=== PATIENT | male | born 1995 | race Caucasian/White ===

== ENCOUNTER 2021-11-13 08:21 | Outpatient (REF) | payer MEDICARE, MEDICAID, SELFPAY ==
[2021-11-13 08:49] LABS: MANUAL DIFF FLAG NO
[2021-11-13 08:53] LABS: Basophils Percent Auto 0.4 % (0-2); Eosinophils Absolute Auto 0.1 X10*3/uL (0.0-0.4); Eosinophils Percent Auto 1.5 % (0-4); Hematocrit 45.9 % (42.0-52.0); Hemoglobin 14.4 g/dl (14.0-18.0); Imm Gran Abs Auto 0.01 X10*3/uL (0.00-0.03); Imm Gran Pct Auto 0.1 % (0.0-0.4); Lymphocytes Absolute Auto 2.7 X10*3/uL (1.2-4.9); Lymphocytes Percent Auto 33.3 % (20-40); Mean Corpuscular HGB Conc 31.4 g/dl (31.0-36.0); Mean Corpuscular Hemoglobin 27.5 pg (27.0-33.0); Mean Corpuscular Volume 87.8 fL (80.0-98.0); Mean Platelet Volume 9.6 fL (9.4-12.4); Monocytes Absolute Auto 0.6 X10*3/uL (0.1-1.2); Monocytes Percent Auto 6.8 % (2-11); Neutrophils Absolute Auto 4.7 x10*3/uL (2.0-8.3); Neutrophils Percent Auto 57.9 % (45-73); Platelet Count 354 X10*3/uL (160-400); Red Blood Count 5.23 X10*6/uL (4.60-5.80); Red Cell Distribution Width 12.6 % (11.0-16.0); White Blood Count 8.1 X10*3/uL (4.8-10.8)
[2021-11-13 09:22] LABS: Alanine Aminotransferase 16 U/L (0-40); Albumin Level 4.2 g/dL (3.5-5.0); Alkaline Phosphatase 66 U/L (39-117); Anion Gap 12 (12-20); Aspartate Amino Transferase 14 U/L (5-37); Blood Urea Nitrogen 11 mg/dL (9-16); Calcium 9.8 mg/dL (8.4-10.2); Carbon Dioxide 28 mmol/L (22-29); Chloride 105 mmol/L (96-108); Cholesterol 154 mg/dL; Estimated Glomerular Filt Rate > 60; Glucose Fasting 95 mg/dL (60-99); HDL Cholesterol 54 mg/dL; LDL Cholesterol Calculated 90 mg/dl; Potassium 3.9 mmol/L (3.3-5.1); Sodium 141 mmol/L (135-145); Total Protein 7.3 g/dL (6.5-8.0); Triglycerides 50 mg/dL
[2021-11-13 09:43] LABS: TSH reflex Free T4 2.59 uIU/mL (0.32-4.0)
== END 2021-11-13 08:22 | disposition home or self-care (01) ==
LOC: HO.LAB 08:21
PROVIDERS: Visit Provider Nurse Practitioner Family
DX: Z13.220 Encounter for screening for lipoid disorders (principal); Z13.29 Encounter for screening for other suspected endocrine disorder; R19.5 Other fecal abnormalities
CPT/HCPCS: 36415; 80053; 80061; 84443; 85025

== ENCOUNTER 2022-01-05 17:12 | Outpatient (REF) | payer MEDICARE, MEDICAID, SELFPAY | END 2022-01-05 17:13 | disposition home or self-care (01) | LOC: HO.LAB 17:12 | PROVIDERS: PCP Internal Medicine; Visit Provider Internal Medicine | DX: Z13.89 Encounter for screening for other disorder (principal) ==

== ENCOUNTER 2022-01-06 16:51 | Outpatient (REF) | payer MEDICARE, MEDICAID, SELFPAY ==
[2022-01-06 20:18] LABS: Leukocytes Stool Qualitative FEW: < 2/OIF (NEGATIVE)
== END 2022-01-06 16:52 | disposition home or self-care (01) ==
LOC: HO.LNP 16:51
PROVIDERS: Visit Provider Internal Medicine
DX: R19.7 Diarrhea, unspecified (principal)
CPT/HCPCS: 87045; 87046; 87329; 87338; 89055

== ENCOUNTER → 2022-01-07 15:42 | Outpatient (BNVA) | payer MEDICARE, MEDICAID, SELFPAY | PROVIDERS: PCP Internal Medicine; Referring Provider Internal Medicine; Visit Provider Nurse Practitioner | DX: K52.9 Noninfective gastroenteritis and colitis, unspecified (principal); R14.1 Gas pain; R14.0 Abdominal distension (gaseous) | CPT/HCPCS: 99202 ==

== ENCOUNTER 2022-01-08 15:19 | Outpatient (REF) | payer MEDICARE, MEDICAID, SELFPAY ==
[2022-01-08 16:15] LABS: C Reactive Protein 0.24 mg/dL (< or = 0.50)
[2022-01-12 13:31] LABS: Transglutaminase Ab IgG <1.0 U/mL; Transglutaminase IgA <1.0 U/mL
== END 2022-01-08 15:20 | disposition home or self-care (01) ==
LOC: HO.LAB 15:19
PROVIDERS: PCP Internal Medicine; Visit Provider Nurse Practitioner
DX: K52.9 Noninfective gastroenteritis and colitis, unspecified (principal); R14.0 Abdominal distension (gaseous); R14.1 Gas pain
CPT/HCPCS: 36415; 86003; 86140; 86364

== ENCOUNTER → 2022-01-28 16:19 | Outpatient (BNVA) | payer MEDICARE, MEDICAID, SELFPAY | PROVIDERS: PCP Internal Medicine; Referring Provider Internal Medicine; Visit Provider Nurse Practitioner | DX: K52.9 Noninfective gastroenteritis and colitis, unspecified (principal); E73.9 Lactose intolerance, unspecified; R14.1 Gas pain | CPT/HCPCS: 99212 ==

== ENCOUNTER → 2022-03-25 15:37 | Outpatient (BNVA) | payer MEDICARE, MEDICAID, SELFPAY | PROVIDERS: PCP Internal Medicine; Referring Provider Internal Medicine; Visit Provider Nurse Practitioner | DX: K52.9 Noninfective gastroenteritis and colitis, unspecified (principal); K63.89 Other specified diseases of intestine; E73.9 Lactose intolerance, unspecified | CPT/HCPCS: 99212 ==

== ENCOUNTER → 2022-04-07 13:40 | Outpatient (BNVA) | payer MEDICARE, MEDICAID, SELFPAY | PROVIDERS: PCP Internal Medicine; Visit Provider Urology | DX: N41.1 Chronic prostatitis (principal); G89.4 Chronic pain syndrome | CPT/HCPCS: 51798; 99202 ==

== ENCOUNTER → 2022-05-20 10:52 | Outpatient (BNVA) | payer MEDICARE, MEDICAID, SELFPAY | PROVIDERS: PCP Internal Medicine; Visit Provider Urology | DX: N41.1 Chronic prostatitis (principal); G89.4 Chronic pain syndrome | CPT/HCPCS: 99212 ==

== ENCOUNTER → 2022-07-27 15:18 | Outpatient (BNVA) | payer MEDICARE, MEDICAID, SELFPAY | PROVIDERS: PCP Internal Medicine; Visit Provider Nurse Practitioner | DX: K52.9 Noninfective gastroenteritis and colitis, unspecified (principal); K63.89 Other specified diseases of intestine; R14.1 Gas pain; G89.4 Chronic pain syndrome; N41.1 Chronic prostatitis; Z79.899 Other long term (current) drug therapy | CPT/HCPCS: 99212 ==

== ENCOUNTER 2022-09-17 15:23 | Outpatient (REF) | payer MEDICARE, MEDICAID, SELFPAY ==
[2022-09-17 16:41] LABS: Appearance Urine Clear; Color Urine Yellow; Glucose Urine UA Negative (Negative); Leukocyte Esterase Urine Negative (Negative); Nitrite Urine Negative (Negative); Urine Blood Negative (Negative); Urine Ketones Trace mg/dL (Negative); Urine Protein Negative (Neg-Trace)
== END 2022-09-17 15:24 | disposition home or self-care (01) ==
LOC: HO.LAB 15:23
PROVIDERS: PCP Internal Medicine; Visit Provider Internal Medicine
DX: R30.0 Dysuria (principal)
CPT/HCPCS: 81003

== ENCOUNTER → 2022-09-29 15:20 | Outpatient (BNVA) | payer MEDICARE, MEDICAID, SELFPAY | PROVIDERS: PCP Internal Medicine; Visit Provider Nurse Practitioner | DX: K52.9 Noninfective gastroenteritis and colitis, unspecified (principal); K63.89 Other specified diseases of intestine; R14.1 Gas pain; R10.10 Upper abdominal pain, unspecified; E73.9 Lactose intolerance, unspecified | CPT/HCPCS: 99212 ==

== ENCOUNTER 2022-09-30 14:43 | Outpatient (REF) | payer MEDICARE, MEDICAID, SELFPAY ==
[2022-10-12 20:52] LABS: Pancreatic Elastase-1 >500 mcg/g
== END 2022-09-30 14:44 | disposition home or self-care (01) ==
LOC: HO.LNP 14:43
PROVIDERS: Visit Provider Nurse Practitioner
DX: R14.1 Gas pain (principal)
CPT/HCPCS: 82656

== ENCOUNTER 2022-10-21 15:00 | Outpatient (RCR) | payer MEDICARE, OTHER, MEDICAID, SELFPAY ==
--- NOTE | 2022-07-30 16:10 | MHC.PT.EP ---
[facility] [place] [facility] [place] [facility] [address] [place] [address] [phone] F: [phone] F: [phone] F: [phone] F: [phone] Physical Therapy Plan of Care Date of Evaluation: Date of Surgery: NA Diagnosis: Chronic prostatitis Chronic pain syndrome Assessment: Ankit is a 27 year old male who is referred to PT for chronic prostatitis . He reports of having symptoms of pain for the last 4 years. Denies any trauma or injury. His pain is localized to area between penis and rectum (perineum) and is present more so after ejaculation, and during flare ups with sitting, coughing and sneezing. He also reports of having symptoms of urgency, frequency, slow stream and straining to empty bladder and bowel. Internal pelvic exam not performed due to lack of time. Symptoms suggestive of possible high resting pelvic tone. He would benefit from skilled PT to address the aforementioned impairments and improve tolerance to functional activities. Frequency and Duration: The patient will be seen 1/week for 8 weeks Short Term Goals: 1. Internal pelvic exam will be done in 1 week. 2. Pt will note 50% decrease in frequency and intensity of symptoms in 3 weeks. Group Home Manager Goals: 1. Pt will note a good stream of urine and a frequency for 6-8 times/ day without medication in 5 weeks. 2. Pt will note a pain of no more than 2/10 after ejaculation in 7 weeks. 3. Pt will be independent with [facility] for symptom management and maintenance following d/c in 8 weeks. Treatment Plan: Modalities to reduce pain, spasms and effusion. Manual therapy to restore motion and function. Therapeutic exercise to improve strength and flexibility. Neuromuscular re-education for posture and balance. Therapeutic activities to return to functional activities of daily living. Electronically signed by: Please sign and return to therapist. Thank you for your referral.
--- NOTE | 2022-10-21 15:46 | MHC.PT.DC ---
[facility] [place] [facility] [place] [facility] [place] Office [address] [place]onica [place] [address] [phone] F: [phone] F: [phone] F: [phone] F: [phone] Physical Therapy Discharge Report Diagnosis: Chronic prostatitis Chronic pain syndrome Date of Surgery: NA Date of Evaluation: 07/30/22 Date of Discharge: 10/21/22 Treatments to Date: 9 Cancellations to Date: 0 No Shows to Date: 0 Discharge Status: Improved Function Independent with HEP Discharge Summary: Ankit has completed 9 PT visits and has made significant improvements. He demonstrates skills for managing pelvic pain flare ups. He is independent with HEP. At this time he would benefit from trialing dietary modification (anti-inflammatory diet) to decreased abdominal pain and discomfort. Ankit is therefore being d/c from PT today. He was in agreement with the plan. Electronically signed by: Rajni Ray PT DPT Please sign and return to therapist. Thank you for your referral.
== END 2022-10-21 15:49 | disposition home or self-care (01) ==
LOC: HO.PT 15:00
PROVIDERS: PCP Internal Medicine; Visit Provider Urology
DX: N41.1 Chronic prostatitis (principal); G89.4 Chronic pain syndrome
CPT/HCPCS: 97112; 97140; 97161

== ENCOUNTER 2022-11-05 14:33 | Outpatient (REF) | payer OTHER, MEDICAID, SELFPAY ==
--- NOTE | ~2022-11-05 | US_ITS ---
EXAMINATION: US ABDOMEN COMPLETE CLINICAL INFORMATION: Pain of right upper abdomen. COMPARISON: X-ray abdomen 06/18/2019. TECHNIQUE: Real-time imaging of the abdominal viscera. FINDINGS: PANCREAS: Normal. ABDOMINAL AORTA: The proximal, mid, and distal segments are normal in caliber. INFERIOR VENA CAVA: Visualized portions are normal. LIVER: Normal. The liver is normal in size. The liver contour is normal. Parenchymal echogenicity is normal. No focal hepatic lesion. There is no intrahepatic biliary duct dilatation seen. GALLBLADDER: The gallbladder is physiologically distended. Multiple mobile gallstones are present. No evidence of gallbladder wall thickening or pericholecystic fluid. There are common tail artifacts suspicious for adenomyomatosis. COMMON BILE DUCT: Normal in caliber measuring 0.3 cm in diameter. RIGHT KIDNEY: Normal. No hydronephrosis. No renal calculi or focal parenchymal lesions. The kidney measures 9.1 cm in maximum dimension. LEFT KIDNEY: Normal. No hydronephrosis. No renal calculi or focal parenchymal lesions. The kidney measures 10.5 cm in maximum dimension. SPLEEN: Normal. The spleen measures 12.2 cm in maximum dimension. FREE FLUID: None. US/US abdomen complete IMPRESSION: Cholelithiasis without wall thickening. Suspect adenomyomatosis. The rest of the abdominal ultrasound is unremarkable.
== END 2022-11-05 14:34 | disposition home or self-care (01) ==
LOC: HO.US 14:33
PROVIDERS: Visit Provider Nurse Practitioner
DX: R10.10 Upper abdominal pain, unspecified (principal); R14.1 Gas pain
CPT/HCPCS: 76700

== ENCOUNTER → 2022-11-11 15:25 | Outpatient (BNVA) | payer OTHER, MEDICAID, SELFPAY | PROVIDERS: PCP Internal Medicine; Visit Provider Nurse Practitioner | DX: K80.20 Calculus of gallbladder without cholecystitis without obstruction (principal) ==

== ENCOUNTER → 2022-11-19 14:55 | Outpatient (BNVA) | payer OTHER, MEDICAID, SELFPAY | PROVIDERS: PCP Internal Medicine; Visit Provider Urology | DX: N46.9 Male infertility, unspecified (principal) ==

== ENCOUNTER 2022-11-26 15:14 | Outpatient (REF) | payer OTHER, MEDICAID, SELFPAY ==
[2022-11-26 15:26] LABS: MANUAL DIFF FLAG NO
[2022-11-26 15:34] LABS: Basophils Percent Auto 0.3 % (0-2); Eosinophils Absolute Auto 0.1 X10*3/uL (0.0-0.4); Eosinophils Percent Auto 0.8 % (0-4); Hematocrit 45.1 % (42.0-52.0); Hemoglobin 14.1 g/dl (14.0-18.0); Imm Gran Abs Auto 0.02 X10*3/uL (0.00-0.03); Imm Gran Pct Auto 0.2 % (0.0-0.4); Lymphocytes Absolute Auto 3.1 X10*3/uL (1.2-4.9); Lymphocytes Percent Auto 36.2 % (20-40); Mean Corpuscular HGB Conc 31.3 g/dl (31.0-36.0); Mean Corpuscular Hemoglobin 27.3 pg (27.0-33.0); Mean Corpuscular Volume 87.4 fL (80.0-98.0); Mean Platelet Volume 9.3 fL (9.4-12.4); Monocytes Absolute Auto 0.6 X10*3/uL (0.1-1.2); Monocytes Percent Auto 6.5 % (2-11); Neutrophils Absolute Auto 4.8 x10*3/uL (2.0-8.3); Platelet Count 337 X10*3/uL (160-400); Red Blood Count 5.16 X10*6/uL (4.60-5.80); Red Cell Distribution Width 12.6 % (11.0-16.0); White Blood Count 8.6 X10*3/uL (4.8-10.8)
[2022-11-26 16:20] LABS: Alanine Aminotransferase 13 U/L (0-40); Albumin Level 4.4 g/dL (3.5-5.0); Alkaline Phosphatase 64 U/L (39-117); Anion Gap 14 (12-20); Aspartate Amino Transferase 16 U/L (5-37); Bilirubin Total 1.4 mg/dL (0.0-1.0); Blood Urea Nitrogen 11 mg/dL (9-16); Calcium 9.8 mg/dL (8.4-10.2); Carbon Dioxide 27 mmol/L (22-29); Chloride 105 mmol/L (96-108); Estimated Glomerular Filt Rate > 60; Glucose Fasting 84 mg/dL (60-99); Potassium 4.4 mmol/L (3.3-5.1); Sodium 142 mmol/L (135-145); Total Protein 7.3 g/dL (6.5-8.0)
[2022-11-26 16:37] LABS: TSH reflex Free T4 1.98 uIU/mL (0.32-4.0)
== END 2022-11-26 15:15 | disposition home or self-care (01) ==
LOC: HO.LAB 15:14
PROVIDERS: PCP Internal Medicine; Visit Provider Nurse Practitioner Family
DX: Z00.00 Encounter for general adult medical examination without abnormal findings (principal)
CPT/HCPCS: 36415; 80053; 82306; 84443; 85025

== ENCOUNTER → 2022-12-01 10:39 | Outpatient (REF) | payer OTHER, MEDICAID, SELFPAY ==
--- NOTE | ~2022-12-01 | NM_ITS ---
EXAMINATION: BILIARY TRACT IMAGING STUDY WITH CCK CLINICAL INFORMATION: Calculus of gallbladder without cholecystitis.. COMPARISON: No previous biliary scan is available for comparison. Abdominal ultrasound dated 11/05/2022 is available for comparison.. TECHNIQUE: Serial gamma scintillation camera images were obtained over the abdomen for a total observation period of 90 minutes following the intravenous administration of 5 mCi Tc-99m Mebrofenin. FINDINGS: There is good concentration of activity in the liver by 5 minutes post injection. Biliary activity is visualized by 6 minutes. The gallbladder is well visualized by 15 minutes. Small bowel is well visualized by 25 minutes. At 60 minutes post radiopharmaceutical injection, a 30-minute infusion of 2.0 micrograms Sincalide was then begun and an additional 40 minutes of images were obtained. Some gallbladder emptying is visualized during the sincalide infusion but this is less than normal. At the end of the study there is almost complete clearance of activity from the liver and visualization of diffuse small bowel activity but persistent activity in the gallbladder. The calculated gallbladder ejection fraction is 29% (normal gallbladder ejection fraction is greater than 35%). NM/NM hepatobiliary w pharm IMPRESSION: 1. Visualization of the gallbladder is evidence of a patent cystic duct and strong evidence against the diagnosis of acute cholecystitis. The common bile duct is patent. Liver function appears normal. 2. Poor gallbladder emptying and a low gallbladder ejection fraction are evidence of impaired gallbladder contractility and most likely due to chronic cholecystitis.
== END ==
LOC: HO.NUCMED 10:39
PROVIDERS: Visit Provider Nurse Practitioner
DX: K80.20 Calculus of gallbladder without cholecystitis without obstruction (principal); R10.10 Upper abdominal pain, unspecified
CPT/HCPCS: 78227; A9537

== ENCOUNTER → 2023-02-18 15:17 | Outpatient (BNVA) | payer OTHER, MEDICAID, SELFPAY | PROVIDERS: PCP Internal Medicine; Visit Provider Nurse Practitioner | DX: Z13.89 Encounter for screening for other disorder (principal) ==

== ENCOUNTER → 2023-04-08 15:17 | Outpatient (BNVA) | payer OTHER, MEDICAID, SELFPAY | PROVIDERS: PCP Internal Medicine; Visit Provider Nurse Practitioner ==

== ENCOUNTER 2023-08-05 14:25 | Outpatient (AMB) | payer OTHER, SELFPAY ==
--- NOTE | 2023-08-05 14:59 | A.OFFVIS_ITS ---
Intake Intake Visit Reasons: Bladder outlet obstruction- follow up Intake Note: Patient presents for follow up Bladder outlet obstruction Urology Medications: Celebrex Blood Thinner: none Director Of Primary Required: No Accompanied by: Unknown Allergies No Known Allergies Allergy (Verified 08/05/23 15:15) Medication List - Last Reconciled 08/05/23 by Matt Stahl MD [bromelain 80 mg PO DAILY] celecoxib (Celebrex) 200 mg PO DAILY cholecalciferol (vitamin D3) 25 mcg PO DAILY qqquqk-yslhdbpg-bonqcef 20,880-78,300- 78,300 unit (Viokace) 2 caps PO TID pentoxifylline ER 400 mg PO BID 90 days vitamin E (dl, acetate) 450 mg PO DAILY 90 days HPI HPI Comments History of Present Illness Details Ankit is a pleasant male. He is a patient of Dr. Garza. He is seen for the following urologic conditions - Chronic pelvic pain syndrome - weak urinary stream with nocturia - male infertility Did have benefit from Mobic for pelvic pain - Celebrex not as helpful Side effect with hair loss May trial Feldene Regarding infertility completed semen analysis. Has extremely low concentration motile sperm Did discuss use of any oxygen such as pentoxifylline and vitamin-E Will try for 3 months with repeat semen analysis Otherwise ISCI would be recommended approach Infertility - [facility] Dr Cruz Male infertility Accompanied by partner Have been trying to have a child for 18 months Discussed basal metabolic temperature monitoring Underwent evaluation of [facility]. Testosterone panel performed normal, genetic deletion analysis normal. Semen Analysis - 08/13 low concentration Chronic pelvic pain syndrome Has boggy prostate on examination High tone pelvic floor with pain particularly on left pelvic sidewall Completed pelvic floor physical therapy with some improvement Good response to combination therapy [facility] Medical History Chronic diarrhea Acute diarrhea Abdominal gas pain Surgical History No pertinent past surgical history Family History Mother No problems noted. Father No problems noted. Social History Housing: Apartment Alcohol intake: never Patient Tobacco Use Status: Never used Tobacco e-Cigarette/Vaping Use: Never Used Second Hand Smoke Exposure: No service: No Current occupational status: unemployed Cognitive needs: No Hearing needs: No Vision needs: Yes Review of Systems Const Denies chills and Denies fever(s) Card Reports no additional complaints and Denies syncope Resp Denies cough GI Denies abdominal pain and Denies heartburn Reports as per HPI and Denies change in libido Neuro Denies syncope Psych Denies change in libido Endo Denies change in libido Physical Exam Const General: cooperative, healthy appearing, comfortable and no acute distress Orientation/consciousness: patient oriented x3 HEENT Face and sinus: Yes normal facial exam Mouth: moist mucous membranes Neck Neck: Yes normal visual inspection, Yes full ROM and Yes trachea midline Chest Chest palpation & inspection: normal inspection of the chest Resp Effort & Inspection: normal respiratory effort, able to speak in complete sentences and no respiratory distress GI Inspection: Yes normal to inspection Back/Spine/Pelvis Cervical Spine: normal cervical lordosis Thoracic/Lumbar Spine: thoracic and lumbar spine normal to inspection Skin General skin exam: no rashes or lesions noted Neuro General: patient oriented x3, gait normal, tone normal and moves all extremities Extrem General: Yes normal to inspection and Yes capillary refill normal Office Procedures Post Void Residual Post Residual Void Post Void Residual (PVR): 38 30159-Srlu Void Residual by ultrasound Results AMB Urinalysis, Automated UA Leukoctes 0 Garth/uL Last Edit by Jeffry Trejo on 08/05/23 15:18 UA Nitrite Last Edit by TianSol Mar REItaj Trejo on 08/05/23 15:18 UA Urobilinogen 0.2 mg/dL Last Edit by TianWevod Neil on 08/05/23 15:18 UA Protein 0 mg/dL Last Edit by TianSol Mar REItaj Trejo on 08/05/23 15:18 UA pH 6.5 Last Edit by [employer] Treoj on 08/05/23 15:18 UA Blood 0 Rico/uL Last Edit by [employer] Trejo on 08/05/23 15:18 UA Specific [place] 1.010 Last Edit by TianSol Mar REItaj Trejo on 08/05/23 15:18 UA Ketone Negative Last Edit by [employer] on 08/05/23 15:18 UA Bilirubin 0 mg/dL Last Edit by [employer] Trejo on 08/05/23 15:18 UA Glucose 0 mg/dL Last Edit by Jeffry Trejo on 08/05/23 15:18 Results Reviewed Results Reviewed: Laboratory Last Values Urine pH (Auto) 6.5 08/05/23 15:17 Specific [place] (Auto) 1.010 08/05/23 15:17 Urine Protein (Auto) 0 mg/dL 08/05/23 15:17 Glucose (UA)(Auto) 0 mg/dL 08/05/23 15:17 Urine Ketones (Auto) Negative 08/05/23 15:17 Urine Blood (Auto) 0 Rico/uL 08/05/23 15:17 Urine Bilirubin (Auto) 0 mg/dL 08/05/23 15:17 Urine Urobilinogen (Auto) 0.2 mg/dL 08/05/23 15:17 Leukocyte Esterase (Auto) 0 Garth/uL 08/05/23 15:17 Assessment & Plan Assessment & Plan (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 Plan Optimize with an antioxidant therapy Orders: Orders AMB Urinalysis Automated Today Z13.9 - Encounter for screening, unspecified AMB Post Void Residual by ultrasound Today N32.0 - Bladder-neck obstruction Medications: New pentoxifylline ER administer with meals 400 mg PO BID 90 days 180 tabs 1RF N46.9 - Male infertility, unspecified vitamin E (dl, acetate) 450 mg PO DAILY 90 days 90 caps 1RF N46.9 - Male infertility, unspecified, N48.6 - Induration penis plastica piroxicam 20 mg PO BID 30 days PRN 60 caps 0RF pelvic pain G89.4 - Chronic pain syndrome, N41.1 - Chronic prostatitis Patient Instructions: Imaging studies, laboratory and physical exam results were discussed and reviewed in detail. No major barriers to patient understanding were identified. An opportunity to ask questions regarding the treatment plan was provided. All questions were answered. The patient expressed understanding and agreement with the above treatment plan. The patient is aware they should contact our office by phone for worsening of their current condition or the appearance of new urologic symptoms. Compliance is encouraged with any medications and followup testing that is ordered. It is a privilege to participate in the urologic care of your patient. If you have any questions or concerns regarding treatment for the above conditions, or other urologic issues, please do not hesitate to contact me. The office telephone contact is [phone]. This note is constructed using voice recognition software. While every effort has been made to ensure accuracy analysis internship errors may have been included. Yours sincerely, Dr Matt Stahl MD, [facility] - Urology Providers of Expert, Compassionate Care for the Genitourinary System Coding Level of Care Code Est Pt Level 3 (67046) Diagnoses Oligospermia N46.11 CPT Codes Post Residual Void - PVR CPT Code: 67412-Nlfs Void Residual by ultrasound ([id number])
== END 2023-08-05 15:58 | disposition home or self-care (01) ==
PROVIDERS: PCP Internal Medicine; Visit Provider Urology
DX: N46.11 Organic oligospermia (principal); Z13.9 Encounter for screening, unspecified
CPT/HCPCS: 99213

== ENCOUNTER → 2023-08-05 14:25 | Outpatient (BNVA) | payer OTHER, SELFPAY | PROVIDERS: PCP Internal Medicine; Visit Provider Urology | DX: N46.11 Organic oligospermia (principal); G89.29 Other chronic pain; R10.2 Pelvic and perineal pain | CPT/HCPCS: 51798; 81003 ==

== ENCOUNTER 2023-08-09 15:19 | Outpatient (AMB) | payer OTHER, MEDICAID, SELFPAY ==
--- NOTE | 2023-08-09 15:25 | A.OFFVIS_ITS ---
Intake Vital Signs 08/09/23 15:29 Height 6 ft 2 in Weight 231 lb 7.766 oz BMI 29.7 BP 119/60 Blood Pressure Location Rt brachial Position Sitting Pulse 71 Intake Visit Reasons: 3 mnth follow up Intake Note: Patient returns to in office follow up of biliary dyskinesia CC: Patient states he feels at work he has more smooshy stools and rumbling stomach. 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 He also reports RUQ abdominal pain a couple times per month . 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 Visualization of the gallbladder is e vidence of a patent cystic duct and strong evidence against the diagnosis of acute cholecystitis. The common bile duct is patent. Liver function appears normal. ? 2. Poor gallbladder emptying and a low g allbladder ejection fraction are evidence of impaired gallbladder contractility and most likely due to chronic cholecystitis Code(s): K82.8 - Other specified diseases of gallbladder Plan: He is here today with his who is supportive. He is generally doing better since I put him on the digestive enzymes. Then he had a ?she day? and had some relapse of his symptoms. He has some new medical problems along with his chronic pelvic pain that seems to be unexplained he is having prostate problems and he was just diagnosed as being infertile. Right now they have a lot of there platelets are looking into and the disappointed about the fertility information as they want to start a family. He see Neurology currently and has requested a referral to reproductive urologist. I also suggest a consider referral to a genetic specialist to see if there is any sort of inherited problem at the cause of his infertility. He is currently on Celebrex for his chronic pelvic pain instead of meloxicam in order to easy effect on the stomach. He still has episodes of pain that radiates up to his right shoulder from right upper quadrant so I suggest that I refer them to surgery for consideration of elective cholecystectomy. I tell him at least then they will have the information to make an informed decision no matter what their decision is. They are agreeable to this. He says that he has gained weight which shows that he is recovering from his GI problems but now they are concerned about him becoming overweight. I tell him he should try to stay where he is now as he is on the borderline of tipping and obesity. At this point they opt for 3 month follow-up since they have an awful lot of doctor's appointments to juggle and this is fine with me. They can always call me if he has any worsening symptoms or concerns. ROV 3 mos. (2) Irritable bowel syndrome with diarrh ea: Code(s): K58.0 - Irritable bowel syndrome with diarrhea (3) Gallstones: Code(s): K80.20 - Calculus of gallbladder without cholecystitis without obstruction (4) Lactose intolerance: Code(s): E73.9 - Lactose intolerance, unspecified Orders: Referrals General Surgery Re [facility] K80.20 - Calculus of gallbladder wit hout cholecystitis without obstructi on, K82.8 - Other specified diseases of gallbladder Medications: Discontinued sucralfate Disc ontinued Reason: Doctor's Order 2 grams (2 x 1 gra m) PO DAILY 60 tab s 6RF K52.9 - Noninfecti ve gastroenteritis and colitis, unsp ecified dicyclomine Dis continued Reason: Doctor's Order 20 mg PO QID 120 tabs 2RF CORRESPONDENCE On 02/11/23 @ 14:49 Susie Coulter Wrote To Duran good news! It worked, no PA needed. I have called the pharmacy and it does have to be ordered so it will be ready on Tuesday, patient also informed. On 02/11/23 @ 11:31 Duran Wrote To (2) I have tried sending NuvoMedce. If this does not work please let me know and we wi ll progress to others..... Medication Orders kkasbb-dbbpbeqh-zo ylase 20,880-78,30 0- 78,300 unit 2 caps PO TID 180 tabs 3RF New rdglyg-chvliyuk-pa ylase 21,000-54,70 0- 83,900 unit 1 cap PO QID 120 c aps 3RF Discontinued ykjtwv-dquklqwt-xh ylase 6,000-19,000 -30,000 unit 1 cap PO .qidac 12 0 caps 0RF Discontinued TODAY'S VISIT He has upcoming appt with gen surgery, but he is doing better with the creon. He went from having BM's multiple times a day to once a day but mushy stools. He will at times have a worse day unsure what foods set it off but we reviewed the fatty foods to avoid. He will at times feel pressure in this area of the RUQ, but this has improved. ROV 6 mos. PFSH Medical History Chronic diarrhea Acute diarrhea Abdominal gas pain Surgical History No pertinent past surgical history Family History Mother No problems noted. Father No problems noted. Social History Housing: Apartment Alcohol intake: never Patient Tobacco Use Status: Never used Tobacco e-Cigarette/Vaping Use: Never Used Second Hand Smoke Exposure: No service: No Current occupational status: unemployed Cognitive needs: No Hearing needs: No Vision needs: Yes Review of Systems Const Denies fatigue, Denies fever(s), Denies night sweats, Denies poor appetite and Denies weight loss Eyes Details: glasses Reports requires corrective lenses ENT Reports Normal hearing present, Denies dental pain, Denies dysphagia, Denies hearing loss, Denies mouth pain, Denies odynophagia, Denies throat swelling, Denies tongue swelling and Reports other (Dentition adequate) Card Reports no additional complaints Resp Reports no additional complaints GI Denies abdominal pain, Denies melena, Reports bloating, Denies hematochezia, Denies constipation, Denies GI cramping, Denies dysphagia, Denies excessive flatus, Denies early satiety, Denies heartburn, Reports diarrhea, Denies nausea, Denies odynophagia, Denies vomiting and Denies hematemesis Skin/Breast Denies pruritus, Denies lesions, Denies rash and Denies jaundice Neuro Reports Normal hearing present and Denies Abnormal speech present Endo Denies fatigue Aller/Immun Denies throat swelling and Denies tongue swelling Physical Exam Vital Signs: Last Vital Signs Pulse 71 08/09/23 15:29 BP 119/60 08/09/23 15:29 BMI result Body Mass Index 29.7 Const General: cooperative, no acute distress, well developed and well groomed Nutritional Appearance: well nourished and overweight Orientation/consciousness: oriented to person, oriented to place and oriented to time Limitations: No language barrier HEENT Head: Yes normocephalic and Yes atraumatic Eyes General: appearance normal, both eyes and all related structures Pupils: Equal, round and reactive pupils present Neck Neck: Yes normal visual inspection and Yes no lymphadenopathy Thyroid: Thyroid normal Resp Effort & Inspection: normal respiratory effort and able to speak in complete sentences Auscultation: clear to auscultation bilaterally Cardio Rate: regular rate Rhythm: regular rhythm Heart sounds: Normal, physiologic split S2 sound present Peripheral pulses: radial pulses present and posterior tibial pulses present GI Inspection: No distended and No Abdominal panniculus present Palpation (GI): Soft to palpation, nontender, no guarding, not rigid and No hepatosplenomegaly present Percussion: Yes normal to percussion Auscultation: normal bowel sounds Rectal Exam - Male: Yes deferred Skin General skin exam: no rashes or lesions noted, turgor normal, skin not dry, no jaundice, No spider nevi and no striae Rashes: no rashes Nails: normal Neuro General: oriented to person, oriented to place and oriented to time Cranial nerves: Yes Equal, round and reactive pupils present and Yes Normal hearing present Speech: No Abnormal speech present Extrem General: Yes normal to inspection, No clubbing, No cyanosis and No edema Psych Appearance: grossly normal and well kempt Mental Status: mental status grossly normal Speech and movement: Normal speech and movement present Affect: normal affect Attitude: cooperative Thought process: Normal thought process present and not confabulating Thought content: Normal thought content present Insight: Fair insight present (Psych) Judgement: Fair judgement present (Psych) Assessment & Plan Assessment & Plan (1) Biliary dyskinesia: Comment: HIDA SCAN 12/06/22 IMPRESSION: 1. Visualization of the gallbladder is evidence of a patent cystic duct and strong evidence against the diagnosis of acute cholecystitis. The common bile duct is patent. Liver function appears normal. ? 2. Poor gallbladder emptying and a low gallbladder ejection fraction are evidence of impaired gallbladder contractility and most likely due to chronic cholecystitis Code(s): K82.8 - Other specified diseases of gallbladder Plan: He has upcoming appt with gen surgery, but he is doing better with the creon. He went from having BM's multiple times a day to once a day but mushy stools. He will at times have a worse day unsure what foods set it off but we reviewed the fatty foods to avoid. He will at times feel pressure in this area of the RUQ, but this has improved. ROV 6 mos. (2) Irritable bowel syndrome with diarrhea: Code(s): K58.0 - Irritable bowel syndrome with diarrhea (3) Gallstones: Code(s): K80.20 - Calculus of gallbladder without cholecystitis without obstruction (4) Chronic diarrhea: Code(s): K52.9 - Noninfective gastroenteritis and colitis, unspecified (5) Bloating: Code(s): R14.0 - Abdominal distension (gaseous) Medications: Changed From rzddjp-ounkytna-yoevtti 20,880-78,300- 78,300 unit administer with meals and/or snacks 2 caps PO TID 180 tabs 6RF K58.0 - Irritable bowel syndrome with diarrhea To zlvhit-shjjzixt-gvyhubo 20,880-78,300- 78,300 unit (Viokace) administer with meals and/or snacks 2 caps PO TID 180 tabs 6RF K58.0 - Irritable bowel syndrome with diarrhea Coding Level of Care Code Est Pt Level 3 (11150) Diagnoses Biliary dyskinesia K82.8 Irritable bowel syndrome with diarrhea K58.0 Gallstones K80.20 Chronic diarrhea K52.9 Bloating R14.0
[2023-08-09 15:29] VITALS: BP 119/60; PULSE 71; BMI 29.7
== END 2023-08-09 15:52 | disposition home or self-care (01) ==
PROVIDERS: PCP Internal Medicine; Visit Provider Nurse Practitioner
DX: K80.20 Calculus of gallbladder without cholecystitis without obstruction (principal); K58.0 Irritable bowel syndrome with diarrhea
CPT/HCPCS: 99213

== ENCOUNTER → 2023-08-09 15:19 | Outpatient (BNVA) | payer OTHER, MEDICAID, SELFPAY | PROVIDERS: PCP Internal Medicine; Visit Provider Nurse Practitioner ==

== ENCOUNTER 2023-08-25 15:18 | Outpatient (AMB) | payer OTHER, SELFPAY ==
--- NOTE | 2023-08-25 15:25 | MHC.OFFVIS ---
Intake Vital Signs 08/25/23 15:34 Height 6 ft 2 in Weight 235 lb BMI 30.2 BP 135/71 Blood Pressure Location Rt brachial Position Sitting Pulse 73 Intake Visit Reasons: calculus of gallbladder Intake Note: This patient presents for an assessment for calculus of the gallbladder. Patient c/o; Onset 4-5 years, reports pressure, reports RUQ radiates towards lower back, reports occasional right shoulder pain, reports mushy stools, reports trapped gas and bloating, reports upset stomach. 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 He had an ultrasound done last April, and was noted to have multiple mobile gallstones. He had been following the Gastroenterology Service then. He states that he has been having this periodic right upper quadrant pain for over a year. 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 He does state that his pain seems to be worse with intake of fatty food. [facility] Medical History (Updated 08/25/23 @ 15:59 by Chris Berwer MD) Morbid obesity Chronic diarrhea Acute diarrhea Abdominal gas pain Surgical History No pertinent past surgical history Family History Mother No problems noted. Father No problems noted. Social History Housing: Apartment Alcohol intake: never Patient Tobacco Use Status: Never used Tobacco e-Cigarette/Vaping Use: Never Used Second Hand Smoke Exposure: No service: No Current occupational status: unemployed Cognitive needs: No Hearing needs: No Vision needs: Yes Review of Systems Const Denies chills and Denies fever(s) Card Denies chest pain, Denies dyspnea and Denies dyspnea on exertion Resp Denies cough, Denies dyspnea and Denies dyspnea on exertion GI Denies hematochezia and Denies change in bowel habits Denies hematuria and Denies difficulty urinating Musc Denies back pain and Denies limited range of motion Neuro Denies focal weakness and Denies convulsions Psych Denies depression and Denies mood swings Physical Exam Const Other: Appears obese General: comfortable and no acute distress Orientation/consciousness: patient oriented x3 Neck Neck: Yes no lymphadenopathy Resp Auscultation: clear to auscultation bilaterally Cardio Rhythm: regular rhythm GI Palpation (GI): Soft to palpation, nontender and no guarding Neuro General: patient oriented x3 Assessment & Plan Assessment & Plan (1) Gallstones: Code(s): K80.20 - Calculus of gallbladder without cholecystitis without obstruction Plan: He he has been having periodic right upper quadrant pain for over a year. He is sounds sure multiple gallstones. His symptoms appear to be consistent with gallbladder disease. I explained to him the technique of laparoscopic cholecystectomy and possible open cholecystectomy. I reviewed the risks including but not limited to bleeding, infections, injury to the bowel, liver and the bile ducts, bile leak, retained stones, inherent risks of anesthesia, as well as the benefits and alternatives. Review of his records also shows that he has had a HIDA scan with [facility] earlier this severe showing I had decreased ejection fraction of 29%. He had multiple questions about the option of cholecystectomy as well as the risks, benefits, and alternatives. We had a long discussion with regards to this. He stated that he was not ready to decide on surgery so he will call me once he decides to proceed. His significant other was with him during the visit. Coding Level of Care Code New Pt Level 4 (94106) Diagnoses Gallstones K80.20
[2023-08-25 15:34] VITALS: BP 135/71; PULSE 73; BMI 30.2
== END 2023-08-25 15:57 | disposition home or self-care (01) ==
PROVIDERS: PCP Internal Medicine; Visit Provider Surgery
DX: K80.20 Calculus of gallbladder without cholecystitis without obstruction (principal)
CPT/HCPCS: 99204

== ENCOUNTER → 2023-08-25 15:18 | Outpatient (BNVA) | payer OTHER, SELFPAY | PROVIDERS: PCP Internal Medicine; Visit Provider Surgery ==

== ENCOUNTER 2023-09-14 15:17 | Outpatient (REF) | payer OTHER, SELFPAY ==
--- NOTE | ~2023-09-14 | MR_ITS ---
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 TECHNIQUE: Multiple routine MRI sequences through the pelvis were obtained on a high-field 1.5 Mulu MRI before and after the uneventful administration of 10 mL of Gadavist gadolinium-based IV contrast. FINDINGS: REPRODUCTIVE ORGANS: Prostate is normal in size measuring 3.7 cm in transverse dimension. There is some heterogeneous wedge-shaped T2 signal in the peripheral zone of the prostate which may reflect sequelae of prior prostatitis. Seminal vesicles are unremarkable. There are few subcentimeter tiny T2 bright lesions in the right testicle measuring up to 4 mm which may reflect tiny cysts which can be confirmed with a dedicated scrotal ultrasound. BLADDER: Urinary bladder is distended. PELVIC FREE FLUID: No free fluid or ascites. LYMPH NODES: No pathologically enlarged lymph nodes. OSSEOUS STRUCTURES: No acute or suspicious osseous abnormalities. MR/MR pelvis wo/w con IMPRESSION: 1. Prostate is normal in size with some heterogeneous wedge-shaped T2 signal in the peripheral zone of the prostate which may reflect sequelae of prior prostatitis. Please note, this was not performed as a dedicated prostate MRI. 2. There are few subcentimeter tiny T2 bright lesions in the right testicle measuring up to 4 mm which may reflect tiny cysts which can be confirmed with a dedicated scrotal ultrasound.
[2023-09-14] MEDS: gadobutroL 10 ML VIAL IVPUSH (16:55)
== END 2023-09-14 15:18 | disposition home or self-care (01) ==
LOC: HO.MRI 15:17
PROVIDERS: PCP Internal Medicine; Visit Provider Urology
DX: N46.11 Organic oligospermia (principal)
CPT/HCPCS: 72197; A9585

== ENCOUNTER 2023-09-22 12:52 | Outpatient (AMB) | payer OTHER, SELFPAY ==
--- NOTE | 2023-09-22 13:43 | A.OFFVIS_ITS ---
Intake Intake Visit Reasons: 2w/MRI(set) Allergies No Known Allergies Allergy (Verified 09/22/23 13:36) Medication List - Last Reconciled 09/22/23 by aMtt Stahl MD [bromelain 80 mg PO DAILY] celecoxib (Celebrex) 200 mg PO DAILY cholecalciferol (vitamin D3) 25 mcg PO DAILY [id number] 20,880-78,300- 78,300 unit (Viokace) 2 caps PO TID pentoxifylline ER 400 mg PO BID 90 days piroxicam 20 mg PO BID PRN 30 days vitamin E (dl, acetate) 450 mg PO DAILY 90 days HPI HPI Comments History of Present Illness Details Ankit is a pleasant male. He is a patient of Dr. Garza. He is seen for the following urologic conditions - Chronic pelvic pain syndrome - weak urinary stream with nocturia - male infertility Telemedicine Evaluation 15 min Consultation [facility] Video Peroxide cam in Celebrex for chronic pelvic pain syndrome Persistent pain ejaculation Has moderated with medication use Continues with pentoxifylline, vitamin-D and zinc in an attempt to improve sperm concentration Pelvic MRI - mild inflamed seminal vesicles Recommend bilateral seminal vesiculoscopy. Previously have performed for pain with ejaculation. 80% of patients have improved. 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 Testosterone panel performed normal, genetic deletion analysis normal. Semen Analysis - 08/13 low concentration, normal volume, pH 7.2 Chronic pelvic pain syndrome Has boggy prostate on examination High tone pelvic floor with pain particularly on left pelvic sidewall Completed pelvic floor physical therapy with some improvement Good response to combination therapy [facility] Medical History (Updated 09/22/23 @ 16:08 by Matt Stahl MD) Morbid obesity Chronic diarrhea Acute diarrhea Abdominal gas pain Surgical History No pertinent past surgical history Family History Mother No problems noted. Father No problems noted. Social History Housing: Apartment Alcohol intake: never Patient Tobacco Use Status: Never used Tobacco e-Cigarette/Vaping Use: Never Used Second Hand Smoke Exposure: No service: No Current occupational status: unemployed Cognitive needs: No Hearing needs: No Vision needs: Yes Review of Systems Const All systems reviewed & are unremarkable except as noted in HPI and below Reports no additional complaints Resp Reports no additional complaints GI Reports no additional complaints Reports as per HPI Musc Reports no additional complaints Physical Exam Telemedicine evaluation Appropriate responses Regular breathing rate and rhythm HEENT Head: Yes normal to inspection Ears: hearing grossly normal bilaterally Eyes General: appearance normal, both eyes and all related structures Neck Neck: Yes normal visual inspection Chest Chest palpation & inspection: normal inspection of the chest Resp Effort & Inspection: normal respiratory effort and able to speak in complete sentences Assessment & Plan Assessment & Plan (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 These include but are not limited to infection, bleeding, damage to local organs and tissues, need for further interventions. Anesthetic risks regarding cardiac arrhythmia, blood clots, and potential mortality were discussed. The patient understands the typical recovery time and the outpatient nature of the procedure. After consideration of these risks the patient gives full informed consent and they wish to move ahead with the procedure. Bilateral seminal vesiculoscopy with irrigation Use regular rigid ureteral scope with holmium laser Medications: Changed From piroxicam 20 mg PO BID 7 days PRN 14 caps 0RF pelvic pain G89.4 - Chronic pain syndrome, N41.1 - Chronic prostatitis To piroxicam 20 mg PO BID 30 days PRN 60 caps 0RF pelvic pain G89.4 - Chronic pain syndrome, N41.1 - Chronic prostatitis Patient Instructions: Imaging studies, laboratory and physical exam results were discussed and reviewed in detail. No major barriers to patient understanding were identified. An opportunity to ask questions regarding the treatment plan was provided. All questions were answered. The patient expressed understanding and agreement with the above treatment plan. The patient is aware they should contact our office by phone for worsening of their current condition or the appearance of new urologic symptoms. Compliance is encouraged with any medications and followup testing that is ordered. It is a privilege to participate in the urologic care of your patient. If you have any questions or concerns regarding treatment for the above conditions, or other urologic issues, please do not hesitate to contact me. The office telephone contact is [phone]. This note is constructed using voice recognition software. While every effort has been made to ensure accuracy revenue field agent errors may have been included. Yours sincerely, Dr Matt Stahl MD, [facility] - Urology Providers of Expert, Compassionate Care for the Genitourinary System Telehealth Telehealth Location of provider rendering services: practice address Location of patient: address on file Patient Identification confirmed using: Name, : Yes Telehealth method: video Patient verbally consented to treatment: Yes Patient verbally consented to billing insurance company: Yes Patient informed of any privacy concerns related to visit: Yes Coding Level of Care Code Tele Est Pt Level 4 (31626) Diagnoses Oligospermia N46.11 Chronic prostatitis/chronic pelvic pain syndrome N41.1; G89.4 Painful ejaculation N53.12
== END 2023-09-22 14:25 | disposition home or self-care (01) ==
LOC: HO.HUSH 12:52
PROVIDERS: PCP Internal Medicine; Visit Provider Urology
DX: N46.11 Organic oligospermia (principal); N41.1 Chronic prostatitis; G89.4 Chronic pain syndrome; N53.12 Painful ejaculation
CPT/HCPCS: 99214

== ENCOUNTER → 2023-09-22 12:52 | Outpatient (BNVA) | payer OTHER, SELFPAY | PROVIDERS: PCP Internal Medicine; Visit Provider Urology ==

== ENCOUNTER 2023-11-04 15:31 | Outpatient (AMB) | payer OTHER, SELFPAY ==
--- NOTE | 2023-11-04 15:45 | MHC.OFFVIS ---
Intake Intake Visit Reasons: 3m seman analysis Allergies No Known Allergies Allergy (Verified 09/22/23 13:36) HPI HPI Comments History of Present Illness Details Ankit is a pleasant male. He is a patient of Dr. Garza. He is seen for the following urologic conditions - Chronic pelvic pain syndrome - weak urinary stream with nocturia - male infertility Telemedicine Evaluation 15 min Consultation [facility] Discussed vesicular loss copy. Procedure in November. Celebrex for chronic pelvic pain syndrome Persistent pain ejaculation Has moderated with medication use Continues with pentoxifylline, vitamin-D and zinc in an attempt to improve sperm concentration Pelvic MRI - mild inflamed seminal vesicles Recommend bilateral seminal vesiculoscopy. Previously have performed for pain with ejaculation. 80% of patients have improved. 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 Testosterone panel performed normal, genetic deletion analysis normal. Semen Analysis - 08/13 low concentration, normal volume, pH 7.2 - 11/12 azoospermic low concentration Chronic pelvic pain syndrome Has boggy prostate on examination High tone pelvic floor with pain particularly on left pelvic sidewall Completed pelvic floor physical therapy with some improvement Good response to combination therapy [facility] Medical History (Updated 09/22/23 @ 16:08 by Matt Stahl MD) Morbid obesity Chronic diarrhea Acute diarrhea Abdominal gas pain Surgical History No pertinent past surgical history Family History Mother No problems noted. Father No problems noted. Social History Housing: Apartment Alcohol intake: never Patient Tobacco Use Status: Never used Tobacco e-Cigarette/Vaping Use: Never Used Second Hand Smoke Exposure: No service: No Current occupational status: unemployed Cognitive needs: No Hearing needs: No Vision needs: Yes Review of Systems Const All systems reviewed & are unremarkable except as noted in HPI and below Reports no additional complaints Resp Reports no additional complaints GI Reports no additional complaints Reports as per HPI Musc Reports no additional complaints Physical Exam Telemedicine evaluation Appropriate responses Regular breathing rate and rhythm HEENT Head: Yes normal to inspection Ears: hearing grossly normal bilaterally Eyes General: appearance normal, both eyes and all related structures Neck Neck: Yes normal visual inspection Chest Chest palpation & inspection: normal inspection of the chest Resp Effort & Inspection: normal respiratory effort and able to speak in complete sentences Assessment & Plan Assessment & Plan (1) Painful ejaculation: Code(s): N53.12 - Painful ejaculation (2) 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 No major barriers to patient understanding were identified. An opportunity to ask questions regarding the treatment plan was provided. All questions were answered. The patient expressed understanding and agreement with the above treatment plan. The patient is aware they should contact our office by phone for worsening of their current condition or the appearance of new urologic symptoms. Compliance is encouraged with any medications and followup testing that is ordered. It is a privilege to participate in the urologic care of your patient. If you have any questions or concerns regarding treatment for the above conditions, or other urologic issues, please do not hesitate to contact me. The office telephone contact is [phone]. This note is constructed using voice recognition software. While every effort has been made to ensure accuracy php web developer errors may have been included. Yours sincerely, Dr Matt Stahl MD, [facility] - Urology Providers of Expert, Compassionate Care for the Genitourinary System Telehealth Telehealth Location of provider rendering services: practice address Location of patient: address on file Patient Identification confirmed using: Name, : Yes Telehealth method: video Patient verbally consented to treatment: Yes Patient verbally consented to billing insurance company: Yes Patient informed of any privacy concerns related to visit: Yes Coding Level of Care Code Tele Est Pt Level 3 (82279) Diagnoses Painful ejaculation N53.12 Oligospermia N46.11
== END 2023-11-04 15:54 | disposition home or self-care (01) ==
LOC: HO.HUSH 15:31
PROVIDERS: PCP Internal Medicine; Visit Provider Urology
DX: N53.12 Painful ejaculation (principal); N46.11 Organic oligospermia
CPT/HCPCS: 99213

== ENCOUNTER → 2023-11-04 15:31 | Outpatient (BNVA) | payer OTHER, SELFPAY | PROVIDERS: PCP Internal Medicine; Visit Provider Urology ==

== ENCOUNTER 2023-11-28 09:12 | Day surgery (SDC) | payer OTHER, SELFPAY ==
[2023-11-24 13:59] VITALS: BMI 29.5
--- NOTE | 2023-11-25 10:13 | HO.ANESPROP2 ---
Documented by User: Ct Amaya NP 11/25/23 10:14 HPI - Anesthesia Eval Consult details Narrative: 28yo M for Bilateral Cystoscopy, Ureteroroscopy, Retro, Laser,vesiculoscopy using ureterorooscopy laser [facility] Active Problems Active Problems: All Active Problems (Updated 11/24/23 @ 14:01 by Yulisa Brown RN) Painful ejaculation (Acute) Oligospermia (Acute) Biliary dyskinesia (Acute) Irritable bowel syndrome with diarrhea (Acute) Low vitamin D level (Acute) Bladder outlet obstruction (Acute) Male infertility (Acute) Overweight (BMI 25.0-29.9) (Acute) Gallstones (Acute) Upper abdominal pain (Acute) Chronic prostatitis/chronic pelvic pain syndrome (Acute) Small intestinal bacterial overgrowth (Acute) Lactose intolerance (Acute) Adult general medical exam (Acute) Bloating (Acute) Mucus in stool (Acute) Screening for hypothyroidism (Acute) Screening for diabetes mellitus (Acute) Screening for hyperlipidemia (Acute) Low back pain (Acute) Morbid obesity (Acute) Chronic diarrhea (Acute) Abdominal gas pain (Acute) Past Medical History Medical History (Updated 11/24/23 @ 14:01 by Yulisa Brown RN) Male infertility IBS (irritable bowel syndrome) Morbid obesity Chronic diarrhea Acute diarrhea Abdominal gas pain Family History Family History Mother No problems noted. Father No problems noted. Surgical History Surgical History No pertinent past surgical history Social History Social History Housing: Apartment Alcohol intake: never Patient Tobacco Use Status: Never used Tobacco e-Cigarette/Vaping Use: Never Used Second Hand Smoke Exposure: No Use of substances other than those prescribed or required for medical reasons: No Advance Directives: No Advance Directives Information Provided: Yes service: No Current occupational status: unemployed Cognitive needs: No Hearing needs: No Vision needs: Yes Meds Allergies Allergy/AdvReac Type Severity Reaction Status Date / Time No Known Allergies Allergy Verified 11/28/23 09:29 Home Medications Medication Instructions Recorded Confirmed Last Taken Type bromelain 80 mg PO DAILY 02/18/23 09/22/23 Unknown History celecoxib 200 mg capsule (Celebrex) 200 mg PO DAILY 04/08/23 11/28/23 1 Week Ago History ~11/21/23 Exam Height,Weight and Vital Signs: Height 6 ft 2 in Weight 104.326 kg Assessment and Plan Assessment Anesthesia Assessment: Chart Reviewed Documented by User: Wanda Smith MD 11/28/23 10:17 [facility] Past Medical History Medical History (Updated 11/24/23 @ 14:01 by Yulisa Brown RN) Male infertility IBS (irritable bowel syndrome) Morbid obesity Chronic diarrhea Acute diarrhea Abdominal gas pain Family History Family History Mother No problems noted. Father No problems noted. Family history of problems with anesthesia: No Surgical History Surgical History No pertinent past surgical history History of Problems with Anesthesia: No Social History Social History Housing: Apartment Alcohol intake: never Patient Tobacco Use Status: Never used Tobacco e-Cigarette/Vaping Use: Never Used Second Hand Smoke Exposure: No Use of substances other than those prescribed or required for medical reasons: No Advance Directives: No Advance Directives Information Provided: Yes service: No Current occupational status: unemployed Cognitive needs: No Hearing needs: No Vision needs: Yes Meds Allergies Allergy/AdvReac Type Severity Reaction Status Date / Time No Known Allergies Allergy Verified 11/28/23 09:29 Home Medications Medication Instructions Recorded Confirmed Last Taken Type bromelain 80 mg PO DAILY 02/18/23 09/22/23 Unknown History celecoxib 200 mg capsule (Celebrex) 200 mg PO DAILY 04/08/23 11/28/23 1 Week Ago History ~11/21/23 Exam Airway Mallampati Class: II TM Dist: >3cm Neck ROM: Full Heart: rrr Lungs: cta Assessment and Plan Assessment Anesthesia Assessment: Anesthesia Plan Discussed Final Anesthetic Review Family History of Problems with Anesthesia: No History of Problems with Anesthesia: No NPO: Yes ASA Class: II Final Preanesthetic Review: No Changes in Pt Med Stat, Meds/Allgs Chart Reviewed and Consent Obtained/Reviewed Patient Risk: Intermediate Procedure Risk: Intermediate Anesthetic Plan Anesthetic Plan: GA Disposition: Standard PACU
[2023-11-28] VITALS (7 sets, daily range): BP systolic 116–131; BP diastolic 66–80; PULSE 62–80; RESP 14–16; TEMP 36.3–36.9; O2SAT 95–100; BMI 30.8
--- NOTE | 2023-11-28 10:23 | MHC.SHP ---
Pre-Procedural Eval Section A Date of Service: 11/28/23 The patient is an INPATIENT: No Changes since office visit: No Cold of Flu in the past 2 weeks, No New Medical Problems, No Changes in Medication and No Patient answered all questions The History & Physical has been completed within 30 days and I have reviewed it.: Yes Section B Chief Complaint: Painful ejaculation,male infertility Details of Present Illness: plan for vesiculoscopy Relevant Social History: None Present Medications: see Short Stay Collaborative assessment Medical History: No relevant PMH History of Previous Operations: No relevant previous surgery Allergies: Allergies Allergy/AdvReac Type Severity Reaction Status Date / Time No Known Allergies Allergy Verified 11/28/23 09:29 Review of Systems Sugical H&P ROS: Negative: Constitution, Cardiovascular, Respiratory, Neurological, Psychiatric, Hem-Onc, Allergic/Immunologic, Gastrointestinal, Genitourinary, Musculoskeletal, Integumentary, Endocrine and Eyes/Ears/Nose/Throat Exam Surgical H&P Exam: Normal: HEENT, Normal: Heart, Normal: Lungs, Normal: Extremities, Normal: Abdomen, Normal: Skin and Normal: Neurological Plan Diagnosis/Plan: Unchanged I have reviewed the history and physical and performed a pertinent physical examination on my patient. No changes have occurred unless specified. Time Spent With Patient Time: Total time managing care of this patient today ____ minutes.
--- NOTE | 2023-12-14 17:18 | W.PM.OPN ---
Operative Note Operative Note Date of Service: 11/28/23 Narrative: PreOperative Diagnosis: Hematospermia, painful ejaculation, oligospermia Post Operative Diagnosis: Hematospermia with painful ejaculation, oligospermia Procedure: Bilateral vesiculoscopy with bilateral seminal vesicle incision - CPT 13707-92 Surgeon: Dr Matt Stahl Anesthesia: General Indications for procedure: Seminal vesicle enlargement with inflammation Procedure: After informed consent was verified the patient was brought to the operating room and placed in a supine position. Anesthesia was administered per protocol. The patient was placed in modified dorsal lithotomy position. The patient was prepped and draped in a sterile fashion. Safety pause time-out was performed. Antibiotics being given. Using a short ureteral scope the ureteral scope was advanced into the urethra. At the verumontanum small opening could be seen to the left side. This was cannulated with a Glidewire. The ureteral scope was removed. Under fluoroscopy which confirmed the Glidewire been inserted into the left seminal vesicle. The ureteral scope was reinserted. Using a holmium laser with low power settings incision was made into the left seminal vesicle docked. The scope was advanced. There was debris and discolored seminal fluid within the duct. This was irrigated clear. Irrigation had 400 mg of Levaquin within 1 L. Attempt was made to find the right ejaculatory duct at the 5 o'clock position from the utricle opening. This was not easily found. We advanced the scope into the utricle and through the right posterolateral aspect divided the thin membrane that allowed entry into the right ejaculatory duct seminal vesicle. This too was irrigated. At the completion of the procedure we removed the ureteral scope. A 14 Citizen Of [place] Valdov[place] catheter was placed which will remain for 2 days. Patient tolerated procedure well was extubated at the completion Pathology: [] Drains: []
== END 2023-11-28 13:48 | disposition home or self-care (01) ==
PROVIDERS: PCP Internal Medicine; Visit Provider Urology
PROC: (CPT 55605; principal; 2023-11-28 10:50)
DX: N53.12 Painful ejaculation (principal); N46.9 Male infertility, unspecified; R36.1 Hematospermia; N46.11 Organic oligospermia
CPT/HCPCS: 55605; C1758; C1769; J1100; J1885; J1956; J2250; J2405; J2704; J3010; Q9967

== ENCOUNTER → 2023-11-28 09:12 | Outpatient (BNV) | payer OTHER, SELFPAY | PROVIDERS: PCP Internal Medicine; Visit Provider Urology | DX: R36.1 Hematospermia (principal); N53.12 Painful ejaculation | CPT/HCPCS: 55605 ==

== ENCOUNTER → 2023-11-30 09:11 | Outpatient (BNVA) | payer OTHER, SELFPAY | PROVIDERS: PCP Internal Medicine; Visit Provider Urology ==

== ENCOUNTER 2023-12-14 14:26 | Outpatient (AMB) | payer OTHER, SELFPAY ==
--- NOTE | 2023-12-14 14:26 | A.OFFVIS_ITS ---
Intake Intake Visit Reasons: Post-op Seminal vesiculoscopy Intake Note: Patient presents today for a follow-up on: Post-OP Seminal Vesiculoscopy Meds- None Allergies to Antibiotic- No Known Allergies Blood Thinner- None Hub Borer Required: No Accompanied by: Self / Same As Patient Allergies No Known Allergies Allergy (Verified 12/14/23 14:31) HPI HPI Comments History of Present Illness Details Ankit is a pleasant male. He is a patient of Dr. Garza. 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 Testosterone panel performed normal, genetic deletion analysis normal. Semen Analysis - 08/13 low concentration, normal volume, pH 7.2 - 11/12 azoospermic low concentration Chronic pelvic pain syndrome Has boggy prostate on examination High tone pelvic floor with pain particularly on left pelvic sidewall Completed pelvic floor physical therapy with some improvement Good response to combination therapy PFSH Medical History Male infertility IBS (irritable bowel syndrome) Morbid obesity Chronic diarrhea Acute diarrhea Abdominal gas pain Surgical History No pertinent past surgical history Family History Mother No problems noted. Father No problems noted. Social History Housing: Apartment Alcohol intake: never Patient Tobacco Use Status: Never used Tobacco e-Cigarette/Vaping Use: Never Used Second Hand Smoke Exposure: No service: No Current occupational status: unemployed Cognitive needs: No Hearing needs: No Vision needs: Yes Review of Systems Const All systems reviewed & are unremarkable except as noted in HPI and below Reports no additional complaints Resp Reports no additional complaints GI Reports no additional complaints Reports as per HPI Musc Reports no additional complaints Physical Exam Telemedicine evaluation Appropriate responses Regular breathing rate and rhythm HEENT Head: Yes normal to inspection Ears: hearing grossly normal bilaterally Eyes General: appearance normal, both eyes and all related structures Neck Neck: Yes normal visual inspection Chest Chest palpation & inspection: normal inspection of the chest Resp Effort & Inspection: normal respiratory effort and able to speak in complete sentences Assessment & Plan Assessment & Plan (1) Painful ejaculation: Code(s): N53.12 - Painful ejaculation (2) Oligospermia: 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 No major barriers to patient understanding were identified. An opportunity to ask questions regarding the treatment plan was provided. All questions were answered. The patient expressed understanding and agreement with the above treatment plan. The patient is aware they should contact our office by phone for worsening of their current condition or the appearance of new urologic symptoms. Compliance is encouraged with any medications and followup testing that is ordered. It is a privilege to participate in the urologic care of your patient. If you have any questions or concerns regarding treatment for the above conditions, or other urologic issues, please do not hesitate to contact me. The office telephone contact is [phone]. This note is constructed using voice recognition software. While every effort has been made to ensure accuracy weaver hand loom errors may have been included. Yours sincerely, Dr Matt Stahl MD, [facility] - Urology Providers of Expert, Compassionate Care for the Genitourinary System Telehealth Telehealth Location of provider rendering services: practice address Location of patient: address on file Patient Identification confirmed using: Name, : Yes Telehealth method: voice only Patient verbally consented to treatment: Yes Patient verbally consented to billing insurance company: Yes Patient informed of any privacy concerns related to visit: Yes Coding Level of Care Code Tele Est Pt Level 3 (75152) Diagnoses Painful ejaculation N53.12 Oligospermia N46.11
== END 2023-12-14 15:15 | disposition home or self-care (01) ==
LOC: HO.HUSH 14:26
PROVIDERS: PCP Internal Medicine; Visit Provider Urology
DX: N53.12 Painful ejaculation (principal); N46.11 Organic oligospermia
CPT/HCPCS: 99024; 99442

== ENCOUNTER → 2023-12-14 14:26 | Outpatient (BNVA) | payer OTHER, SELFPAY | PROVIDERS: PCP Internal Medicine; Visit Provider Urology ==

== ENCOUNTER 2024-02-01 11:28 | Outpatient (AMB) | payer OTHER, SELFPAY ==
--- NOTE | 2024-02-01 13:00 | A.OFFVIS_ITS ---
Intake Intake Visit Reasons: 6w follow up Intake Note: Patient presents today for a telehealth follow-up Meds- None Allergies to Antibiotic- No Known Allergies Blood Thinner- None Vibration Analyst Required: No Allergies No Known Allergies Allergy (Verified 02/27/24 15:19) Medication List - Last Reconciled 02/01/24 by Matt Stahl MD arginine (L-arginine) 500 mg PO DAILY 90 days [bromelain 80 mg PO DAILY] celecoxib (Celebrex) 200 mg PO DAILY cholecalciferol (vitamin D3) 25 mcg PO DAILY ciprofloxacin HCl 250 mg PO DAILY 7 days ehzzpq-uijxcyiw-zamfuvy 20,880-78,300- 78,300 unit (Viokace) 2 caps PO TID oxycodone-acetaminophen 5-325 mg 1 tab PO Q4H PRN 7 days pentoxifylline ER 400 mg PO BID 90 days piroxicam 20 mg PO BID PRN 30 days vitamin E (dl, acetate) 450 mg PO DAILY 90 days HPI HPI Comments History of Present Illness Details Ankit is a pleasant male. He is a patient of Dr. Garza. 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 Testosterone panel performed normal, genetic deletion analysis normal. Semen Analysis - 08/13 low concentration, normal volume, pH 7.2 - 11/12 azoospermic low concentration Chronic pelvic pain syndrome Has boggy prostate on examination High tone pelvic floor with pain particularly on left pelvic sidewall Completed pelvic floor physical therapy with some improvement Good response to combination therapy PFSH Medical History Male infertility IBS (irritable bowel syndrome) Morbid obesity Chronic diarrhea Acute diarrhea Abdominal gas pain Surgical History History of laparoscopic cholecystectomy (~02/14/24) Hx of cystoscopy Family History Mother No problems noted. Father No problems noted. Social History Housing: Apartment Alcohol intake: never Patient Tobacco Use Status: Never used Tobacco e-Cigarette/Vaping Use: Never Used Second Hand Smoke Exposure: No service: No Current occupational status: unemployed Cognitive needs: No Hearing needs: No Vision needs: Yes Review of Systems Const All systems reviewed & are unremarkable except as noted in HPI and below Reports no additional complaints Resp Reports no additional complaints GI Reports no additional complaints Reports as per HPI Musc Reports no additional complaints Physical Exam Telemedicine evaluation Appropriate responses Regular breathing rate and rhythm HEENT Head: Yes normal to inspection Ears: hearing grossly normal bilaterally Eyes General: appearance normal, both eyes and all related structures Neck Neck: Yes normal visual inspection Chest Chest palpation & inspection: normal inspection of the chest Resp Effort & Inspection: normal respiratory effort and able to speak in complete sentences Assessment & Plan Assessment & Plan (1) Painful ejaculation: Code(s): N53.12 - Painful ejaculation (2) Male infertility: Code(s): N46.9 - Male infertility, unspecified Plan One month follow-up Medications: New arginine (L-arginine) administer after a meal 500 mg PO DAILY 90 tabs 0RF 90 days Refilled vitamin E (dl, acetate) 450 mg PO DAILY 90 caps 1RF 90 days N46.9 - Male infertility, unspecified, N48.6 - Induration penis plastica pentoxifylline ER administer with meals 400 mg PO BID 180 tabs 1RF 90 days N46.9 - Male infertility, unspecified Patient Instructions: Imaging studies, laboratory and physical exam results were discussed and rev iewed in detail. No major barriers to patient understanding were identified. An opportunity to ask questions regarding the treatment plan was provided. All questions were answered. The patient expressed understanding and agreement with the above treatment plan. The patient is aware they should contact our office by phone for worsening of their current condition or the appearance of new urologic symptoms. Compliance is encouraged with any medications and followup testing that is ordered. It is a privilege to participate in the urologic care of your patient. If you have any questions or concerns regarding treatment for the above conditions, or other urologic issues, please do not hesitate to contact me. The office telephone contact is [phone]. This note is constructed using voice recognition software. While every effort has been made to ensure accuracy elementary school science teacher errors may have been included. Yours sincerely, Dr Matt Stahl MD, [facility] - Urology Providers of Expert, Compassionate Care for the Genitourinary System Telehealth Telehealth Location of provider rendering services: practice address Location of patient: address on file Patient Identification confirmed using: Name, : Yes Telehealth method: video Patient verbally consented to treatment: Yes Patient verbally consented to billing insurance company: Yes Patient informed of any privacy concerns related to visit: Yes Coding Level of Care Code Tele Est Pt Level 3 (89184) Diagnoses Painful ejaculation N53.12 Male infertility N46.9
== END 2024-02-01 15:24 | disposition home or self-care (01) ==
LOC: HO.HUSH 11:28
PROVIDERS: PCP Internal Medicine; Visit Provider Urology
DX: N53.12 Painful ejaculation (principal); N46.9 Male infertility, unspecified
CPT/HCPCS: 99024

== ENCOUNTER → 2024-02-01 11:28 | Outpatient (BNVA) | payer OTHER, SELFPAY | PROVIDERS: PCP Internal Medicine; Visit Provider Urology ==

== ENCOUNTER 2024-02-07 15:16 | Outpatient (AMB) | payer OTHER, SELFPAY ==
--- NOTE | 2024-02-07 15:21 | A.OFFVIS_ITS ---
Intake Vital Signs 02/07/24 15:28 Height 6 ft 2 in Weight 232 lb 12.93 oz BMI 29.9 BP 122/76 Blood Pressure Location Lt brachial Position Sitting Pulse 84 Intake Visit Reasons: 6 mnth f/u biliary dyskinesia Intake Note: Ankit returns in 6 months follow up of biliary dyskinesia. CC: Patient underwent seminal vesiculoscopy on 11/28/[address] Stahl and he states the since after the procedure the symptoms of pressure and lower back camila n resolved, and his GI symptoms have also improved. He continues to feel RUQ pressure. His also reports that his stools have improved as well. Fixed Wing Pilot Required: No Allergies No Known Allergies Allergy (Verified 02/07/24 15:48) HPI 6 mnth f/u biliary dyskinesia HPI Details Assessment & Plan (1) Biliary dyskinesia: Comment: HIDA SCAN 12/06/22 IMPRESSION: 1. Visualization of the gallbladder is e vidence of a patent cystic duct and strong evidence against the diagnosis of acute cholecystitis. The common bile duct is patent. Liver function appears normal. ? 2. Poor gallbladder emptying and a low g allbladder ejection fraction are evidence of impaired gallbladder contractility and most likely due to chronic cholecystitis Code(s): K82.8 - Other specified diseases of gallbladder Plan: He has upcoming appt with gen surgery, but he is doing better with the creon. He went from having BM's multiple times a day to once a day but mushy stools. He will at times have a worse day unsure what foods set it off but we reviewed the fatty foods to avoid. He will at times feel pressure in this area of the RUQ, but this has improved. ROV 6 mos. (2) Irritable bowel syndrome with diarrh ea: Code(s): K58.0 - Irritable bowel syndrome with diarrhea (3) Gallstones: Code(s): K80.20 - Calculus of gallbladder without cholecystitis without obstruction (4) Chronic diarrhea: Code(s): K52.9 - Noninfective gastroenteritis and colitis, unspecified (5) Bloating: Code(s): R14.0 - Abdominal distension (gaseous) Medications: Changed From hewcxs-lumsdwjd-rz ylase 20,880-78,30 0- 78,300 unit administer with me als and/or snacks 2 caps PO TID 180 tabs 6RF K58.0 - Irritable bowel syndrome wit h diarrhea To uyeshx-jktfwtpv-av ylase 20,880-78,30 0- 78,300 unit (Vi okace) administ er with meals and/ or snacks 2 caps PO TID 180 tabs 6RF K58.0 - Irritable bowel syndrome wit h diarrhea CORRESPONDENCE On 02/11/23 @ 14:49 Susie Coulter Wrote To Renee good news! It worked, no PA needed. I have called the pharmacy and it does have to be ordered so it will be ready on Tuesday, patient also informed. On 02/11/23 @ 11:31 ReneeFebruary Wrote To Renee (2) I have tried sending Viokadelgado. If this does not work please let me know and we will progress to others..... Medication Orders qdmlet-wgpjhxrb-te ylase 20,880-78,30 0- 78,300 unit 2 caps PO TID 180 tabs 3RF New kcuesg-oneiowyp-kl ylase 21,000-54,70 0- 83,900 unit 1 cap PO QID 120 c aps 3RF Discontinued kybgmy-viqbfrcz-su ylase 6,000-19,000 -30,000 unit 1 cap PO .qidac 12 0 caps 0RF Discontinued TODAY'S VISIT He is here today with his who is supportive. He had his prostate cleaned out via cystoscopy and this seems to have improved his bowel fxn and GB problems. BUT he still feels pressure and is having a dre next week. He has been doing well without taking the Creon or any of the other GI medications at this time! We discuss possible post dre syndrome, and of course this does not happen everyone but if he does have this problem he definitely should count on me to help him with it. ROV 3 mos. [facility] Medical History Male infertility IBS (irritable bowel syndrome) Morbid obesity Chronic diarrhea Acute diarrhea Abdominal gas pain Surgical History No pertinent past surgical history Family History Mother No problems noted. Father No problems noted. Social History Housing: Apartment Alcohol intake: never Patient Tobacco Use Status: Never used Tobacco e-Cigarette/Vaping Use: Never Used Second Hand Smoke Exposure: No service: No Current occupational status: unemployed Cognitive needs: No Hearing needs: No Vision needs: Yes Review of Systems Const Denies fatigue, Denies fever(s), Denies night sweats, Denies poor appetite and Denies weight loss Eyes Details: glasses Reports requires corrective lenses ENT Reports Normal hearing present, Denies dental pain, Denies dysphagia, Denies hearing loss, Denies mouth pain, Denies odynophagia, Denies throat swelling, Denies tongue swelling and Reports other (Dentition adequate) Card Reports no additional complaints Resp Reports no additional complaints GI Details: Reports abdominal pain, Denies melena, Denies bloating, Denies hematochezia, Denies constipation, Denies GI cramping, Denies dysphagia, Denies excessive flatus, Denies early satiety, Denies heartburn, Denies diarrhea, Denies nausea, Denies odynophagia, Denies vomiting and Denies hematemesis Skin/Breast Denies pruritus, Denies lesions, Denies rash and Denies jaundice Neuro Reports Normal hearing present and Denies Abnormal speech present Endo Denies fatigue Aller/Immun Denies throat swelling and Denies tongue swelling Physical Exam Vital Signs: Last Vital Signs Pulse 84 02/07/24 15:28 BP 122/76 02/07/24 15:28 BMI result Body Mass Index 29.9 Const General: cooperative, no acute distress, well developed and well groomed Nutritional Appearance: well nourished and obese Orientation/consciousness: oriented to person, oriented to place and oriented to time Limitations: No language barrier HEENT Head: Yes normocephalic and Yes atraumatic Eyes General: appearance normal, both eyes and all related structures Pupils: Equal, round and reactive pupils present Neck Neck: Yes normal visual inspection and Yes no lymphadenopathy Thyroid: Thyroid normal Resp Effort & Inspection: normal respiratory effort and able to speak in complete sentences Auscultation: clear to auscultation bilaterally Cardio Rate: regular rate Rhythm: regular rhythm Heart sounds: Normal, physiologic split S2 sound present Peripheral pulses: radial pulses present and posterior tibial pulses present GI Inspection: No distended, No Abdominal panniculus present and Yes obesity Palpation (GI): Soft to palpation, nontender, no guarding, not rigid and No hepatosplenomegaly present Percussion: Yes normal to percussion Auscultation: normal bowel sounds Rectal Exam - Male: Yes deferred Skin General skin exam: no rashes or lesions noted, turgor normal, skin not dry, no jaundice, No spider nevi and no striae Rashes: no rashes Nails: normal Neuro General: oriented to person, oriented to place and oriented to time Cranial nerves: Yes Equal, round and reactive pupils present and Yes Normal hearing present Speech: No Abnormal speech present Extrem General: Yes normal to inspection, No clubbing, No cyanosis and No edema Psych Appearance: grossly normal and well kempt Mental Status: mental status grossly normal Speech and movement: Normal speech and movement present Affect: normal affect Attitude: cooperative Thought process: Normal thought process present and not confabulating Thought content: Normal thought content present Insight: Fair insight present (Psych) Judgement: Fair judgement present (Psych) Assessment & Plan Assessment & Plan (1) Irritable bowel syndrome with diarrhea: Code(s): K58.0 - Irritable bowel syndrome with diarrhea (2) Biliary dyskinesia: Comment: HIDA SCAN 12/06/22 IMPRESSION: 1. Visualization of the gallbladder is evidence of a patent cystic duct and strong evidence against the diagnosis of acute cholecystitis. The common bile duct is patent. Liver function appears normal. ? 2. Poor gallbladder emptying and a low gallbladder ejection fraction are evidence of impaired gallbladder contractility and most likely due to chronic cholecystitis Code(s): K82.8 - Other specified diseases of gallbladder (3) Abdominal gas pain: Code(s): R14.1 - Gas pain Plan He is here today with his who is supportive. He had his prostate cleaned out via cystoscopy and this seems to have improved his bowel fxn and GB problems. BUT he still feels pressure and is having a dre next week. He has been doing well without taking the Creon or any of the other GI medications at this time! We discuss possible post dre syndrome, and of course this does not happen everyone but if he does have this problem he definitely should count on me to help him with it. ROV 3 mos. Coding Level of Care Code Est Pt Level 3 (73096) Diagnoses Irritable bowel syndrome with diarrhea K58.0 Biliary dyskinesia K82.8 Abdominal gas pain R14.1
[2024-02-07 15:28] VITALS: BP 122/76; PULSE 84; BMI 29.9
== END 2024-02-07 16:08 | disposition home or self-care (01) ==
PROVIDERS: PCP Internal Medicine; Visit Provider Nurse Practitioner
DX: K58.0 Irritable bowel syndrome with diarrhea (principal); K82.8 Other specified diseases of gallbladder; R14.1 Gas pain
CPT/HCPCS: 99213

== ENCOUNTER → 2024-02-07 15:16 | Outpatient (BNVA) | payer OTHER, SELFPAY | PROVIDERS: PCP Internal Medicine; Visit Provider Nurse Practitioner ==

== ENCOUNTER 2024-02-14 05:34 | Day surgery (SDC) | payer OTHER, SELFPAY ==
[2024-02-10 10:12] VITALS: BMI 30.2
--- NOTE | 2024-02-10 15:23 | HO.ANESPROP2 ---
HPI - Anesthesia Eval Consult details Narrative: 28yo M for Cholecystectomy Laparoscopic, possible cholangiogram s/p cysto, etc 11/2023 with [facility]-LMA 4 PMFSH Active Problems Active Problems: All Active Problems (Updated 11/24/23 @ 14:01 by Yulisa Brown RN) Painful ejaculation (Acute) Oligospermia (Acute) Biliary dyskinesia (Acute) Irritable bowel syndrome with diarrhea (Acute) Low vitamin D level (Acute) Bladder outlet obstruction (Acute) Male infertility (Acute) Overweight (BMI 25.0-29.9) (Acute) Gallstones (Acute) Upper abdominal pain (Acute) Chronic prostatitis/chronic pelvic pain syndrome (Acute) Small intestinal bacterial overgrowth (Acute) Lactose intolerance (Acute) Adult general medical exam (Acute) Bloating (Acute) Mucus in stool (Acute) Screening for hypothyroidism (Acute) Screening for diabetes mellitus (Acute) Screening for hyperlipidemia (Acute) Low back pain (Acute) Morbid obesity (Acute) Chronic diarrhea (Acute) Abdominal gas pain (Acute) Past Medical History Medical History Male infertility IBS (irritable bowel syndrome) Morbid obesity Chronic diarrhea Acute diarrhea Abdominal gas pain Family History Family History Mother No problems noted. Father No problems noted. Family history of problems with anesthesia: No Surgical History Surgical History Hx of cystoscopy History of Problems with Anesthesia: No Social History Social History Housing: Apartment Alcohol intake: never Patient Tobacco Use Status: Never used Tobacco e-Cigarette/Vaping Use: Never Used Second Hand Smoke Exposure: No Use of substances other than those prescribed or required for medical reasons: No Are you DNR?: No Advance Directives: No Advance Directives Information Provided: Yes Advance Directives on File: No service: No Current occupational status: unemployed Cognitive needs: No Hearing needs: No Vision needs: Yes Meds Allergies Allergy/AdvReac Type Severity Reaction Status Date / Time No Known Allergies Allergy Verified 02/07/24 15:48 Home Medications Medication Instructions Recorded Confirmed Last Taken Type bromelain 80 mg PO DAILY 02/18/23 02/10/24 Unknown History celecoxib 200 mg capsule (Celebrex) 200 mg PO DAILY PRN Pain 02/07/24 02/10/24 Unknown History Exam Height,Weight and Vital Signs: Height 6 ft 2 in Weight 106.594 kg Assessment and Plan Assessment Anesthesia Assessment: Chart Reviewed Final Anesthetic Review Family History of Problems with Anesthesia: No History of Problems with Anesthesia: No
[2024-02-14 06:14] VITALS: BP 119/72; PULSE 76; RESP 16; TEMP 36.8; O2SAT 99
[2024-02-14 07:03] VITALS: BMI 30.8
--- NOTE | 2024-02-14 07:28 | P.CONAN_ITS ---
FORM[facility] Active Problems Active Problems: All Active Problems (Updated 11/24/23 @ 14:01 by Yulisa Brown RN) Painful ejaculation (Acute) Oligospermia (Acute) Biliary dyskinesia (Acute) Irritable bowel syndrome with diarrhea (Acute) Low vitamin D level (Acute) Bladder outlet obstruction (Acute) Male infertility (Acute) Overweight (BMI 25.0-29.9) (Acute) Gallstones (Acute) Upper abdominal pain (Acute) Chronic prostatitis/chronic pelvic pain syndrome (Acute) Small intestinal bacterial overgrowth (Acute) Lactose intolerance (Acute) Adult general medical exam (Acute) Bloating (Acute) Mucus in stool (Acute) Screening for hypothyroidism (Acute) Screening for diabetes mellitus (Acute) Screening for hyperlipidemia (Acute) Low back pain (Acute) Morbid obesity (Acute) Chronic diarrhea (Acute) Abdominal gas pain (Acute) Past Medical History Medical History Male infertility IBS (irritable bowel syndrome) Morbid obesity Chronic diarrhea Acute diarrhea Abdominal gas pain Functional capacity: independent ambulation Family History Family History Mother No problems noted. Father No problems noted. Family history of problems with anesthesia: No Surgical History Surgical History Hx of cystoscopy History of Problems with Anesthesia: No Social History Social History Housing: Apartment Alcohol intake: never Patient Tobacco Use Status: Never used Tobacco e-Cigarette/Vaping Use: Never Used Second Hand Smoke Exposure: No Use of substances other than those prescribed or required for medical reasons: No Are you DNR?: No Advance Directives: No Advance Directives Information Provided: Yes Advance Directives on File: No service: No Current occupational status: unemployed Cognitive needs: No Hearing needs: No Vision needs: Yes Meds Allergies Allergy/AdvReac Type Severity Reaction Status Date / Time No Known Allergies Allergy Verified 02/07/24 15:48 Active Medications: Current Medications Lactated Ringer's (Lr) 1,000 mls @ 100 mls/hr IVCONT .Q10H JARRETT Cefotetan Disodium 2 gm/ (Sodium Chloride) 50 mls @ 100 mls/hr IV PREOP ONE Stop: 02/14/24 07:37 Home Medications Medication Instructions Recorded Confirmed Last Taken Type bromelain 80 mg PO DAILY 02/18/23 02/10/24 Unknown History celecoxib 200 mg capsule (Celebrex) 200 mg PO DAILY PRN Pain 02/07/24 02/10/24 Unknown History Exam Height,Weight and Vital Signs: Height 6 ft 2 in Weight 108.976 kg Last Vital Signs Temp 98.2 F 02/14/24 06:14 Pulse 76 02/14/24 06:14 Resp 16 02/14/24 06:14 BP 119/72 02/14/24 06:14 Pulse Ox 99 02/14/24 06:14 O2 Del Method Room Air 02/14/24 06:14 Airway Mallampati Class: III TM Dist: >3cm Neck ROM: Full Heart: RRR Lungs: CTA Assessment and Plan Final Anesthetic Review Family History of Problems with Anesthesia: No History of Problems with Anesthesia: No NPO: Yes ASA Class: III Final Preanesthetic Review: Meds/Allgs Chart Reviewed, Consent Obtained/Reviewed and Anes Risks/Benef Reviewed Patient Risk: Intermediate Procedure Risk: Intermediate Anesthetic Plan Anesthetic Plan: GA Disposition: Standard PACU
--- NOTE | 2024-02-14 07:35 | P.HPSUR_ITS ---
Pre-Procedural Eval Section A - 24 Hr Update-Section A only Date of Service: 02/14/24 Section B - Complete if H&P > 30 days Chief Complaint: Calculus of gallbladder without cholecystitis with Details of Present Illness: Has had known gallstones, periodic right upper quadrant pain; seen last August 2023. However he had to go for cystoscopy so procedure was not scheduled earlier Relevant Family History (Specify if Yes): No Relevant Social History: None Present Medications: see Short Stay Collaborative assessment Medical History: Significant History (IBS, overweight, painful ejaculation, infertility) History of Previous Operations: No relevant previous surgery Allergies: Allergies Allergy/AdvReac Type Severity Reaction Status Date / Time No Known Allergies Allergy Verified 02/07/24 15:48 Review of Systems Sugical H&P ROS: Negative: Constitution, Cardiovascular, Respiratory, Neurological, Psychiatric, Hem-Onc, Allergic/Immunologic, Gastrointestinal, Genitourinary, Musculoskeletal, Integumentary, Endocrine and Eyes/Ears/No se/Throat Exam Surgical H&P Exam: Normal: HEENT, Normal: Heart, Normal: Lungs, Normal: Extremities, Normal: Abdomen, Normal: Skin and Normal: Neurological Plan Diagnosis/Plan: Unchanged I have reviewed the history and physical and performed a pertinent physical examination on my patient. No changes have occurred unless specified. Time Spent With Patient Time: Total time managing care of this patient today ____ minutes.
--- NOTE | 2024-02-14 08:31 | W.PM.OPN ---
Operative Note Operative Note Date of Service: 02/14/24 Narrative: Preop diagnosis: Gallstones with symptoms Postop diagnosis: The same Procedure: Laparoscopic cholecystectomy Surgeon: Chris Brewer MD social and human services assistant: RICH Rodrigues The patient is a 28-year-old male with known gallstones, with periodic right upper quadrant pain and tenderness. He therefore wanted to proceed with cholecystectomy. He understood the technique of laparoscopic cholecystectomy. He was aware of the risks, benefits, and alternatives. He was brought to the operating room and placed supine under general anesthesia via endotracheal tube. The abdomen was prepped and draped in the usual sterile fashion. A surgical time-out was done. The patient received Cefotan 2 g IV preoperatively. I made a short supraumbilical incision using blade 15. This was carried down through the full-thickness of the skin subcutaneous fat down to the fascia. The fascia was incised. The peritoneum was entered. Through this incision a Tubbs port was introduced. Pneumoperitoneum was introduced to a pressure of 15 mm Hg. From here on the rest of procedure was done under vision with the laparoscope. With the 10 mm 0 degree scope, I proceeded to create a 5/12 mm port in the epigastric area below the subcostal margin. Two 5 mm ports introduced small incisions below the subcostal margin along the anterior axillary line the midclavicular line. Graspers were placed through this working ports. The patient was placed in head up and [id number] position. The gallbladder was seen. This was noted to be supple and noninflamed. However, there was note of a lot of adhesions on the anterior wall. We were able to apply a grasper on the fundus of the gallbladder to retract this cephalad. By doing so was able to carefully separate the adhesions off the anterior wall using the [place] dissector until was able to completely expose this. I applied a grasper towards the pouch of the gallbladder to retract this laterally. At this point the gallbladder was being retracted in a cephalad and lateral fashion to put the area of the cystic duct on stretch. I carefully defined the cystic duct using the [place] dissector until I was able to confirm its confluence with the neck of the gallbladder. At this point, a critical view of the hepatocystic triangle was achieved. I applied clips with 2 clips being applied distally. The cystic duct was transected between clips with Endo scissors. The cystic artery was seen and this was carefully dissected. I applied clips on the cystic artery with 2 clips being applied distally and this was transected between clips with Endo scissors. There was note of a small leak from the cystic duct stump as the clip had loosened. I was able to retrieve the clip. There was note of a little tear in the capsule of the gallbladder from the attachment to the falciform ligament but this appeared to be hemostatic. With traction on the gallbladder away from the liver bed, I proceeded to then carefully divide through the hilum. I incised the peritoneum of the gallbladder wall with electrocautery. I used the tip of the spatula for blunt dissection as well as cautery to carefully define a plane of dissection between the gallbladder wall and the liver bed. I the gallbladder from the liver bed along this well-defined plane all the way to the fundus until the entire gallbladder was completely . The gallbladder was retrieved through an endobag through the epigastric port site. I reinserted all ports and re-insufflated. I examined the area of dissection. There was no sign of any bleeding or any bile leak. I observed all 4 quadrants. There was no other pathology. There was no evidence of any bowel injury. I copiously irrigated the right upper quadrant until the irrigant was clear. I reexamined the subhepatic space. This remained dry. I therefore desufflated the port sites. I removed all ports under vision with the laparoscope. The umbilical port was removed last. The fascia of the umbilical incision was closed with a [id number] Polysorb 3-0 stitch. Skin closure was achieved on all incisions using Polysorb 4-0 subcuticular running sutures. All incisions were infiltrated with Marcaine 0.5% for postop analgesia. Steri-Strips and dressings were applied. The procedure was then completed. The patient tolerated procedure well. There were no immediate complications. Initial final counts of sponges and instruments were correct. Estimated blood loss was less than 25 cc The patient was extubated without difficulty and transferred to the recovery room with stable vital signs.
[2024-02-14 08:41] VITALS: BP 137/87; PULSE 75; RESP 16; TEMP 36.1; O2SAT 96
[2024-02-14 08:46] VITALS: BP 146/89; PULSE 70; RESP 17; O2SAT 97
[2024-02-14 08:51] VITALS: BP 139/93; PULSE 67; RESP 16; O2SAT 97
[2024-02-14 08:56] VITALS: BP 134/98; PULSE 73; RESP 18; O2SAT 96
[2024-02-14] MEDS: oxyCODONE HCl Immed Release 5 MG TABLET PO (08:58)
[2024-02-14 09:10] VITALS: BP 149/94; PULSE 60; RESP 16; TEMP 36.4; O2SAT 98
== END 2024-02-14 10:02 | disposition home or self-care (01) ==
PROVIDERS: PCP Internal Medicine; Visit Provider Surgery
PROC: 0FT44ZZ Resection of Gallbladder, Percutaneous Endoscopic Approach (ICD-10-PCS; CPT 47562; principal; 2024-02-14 07:30)
DX: K80.10 Calculus of gallbladder with chronic cholecystitis without obstruction (principal); K82.8 Other specified diseases of gallbladder; R14.1 Gas pain; K58.0 Irritable bowel syndrome with diarrhea; E66.9 Obesity, unspecified; Z68.30 Body mass index [BMI] 30.0-30.9, adult; Z79.899 Other long term (current) drug therapy
CPT/HCPCS: 47562; 88304; J0131; J1100; J1596; J2250; J2405; J2704; J2795; J3010

== ENCOUNTER → 2024-02-14 05:34 | Outpatient (BNV) | payer OTHER, SELFPAY | PROVIDERS: PCP Internal Medicine; Visit Provider Surgery | DX: K80.10 Calculus of gallbladder with chronic cholecystitis without obstruction (principal) | CPT/HCPCS: 47562 ==

== ENCOUNTER 2024-02-27 15:08 | Outpatient (AMB) | payer OTHER, SELFPAY ==
--- NOTE | 2024-02-27 15:14 | A.OFFVIS_ITS ---
Intake Intake Visit Reasons: Lap dre Intake Note: This patient presents for a post-op assessment status post laparoscopic cholecystectomy. Pt c/o; reports bloating and diarrhea, reports no abdominal pain or cramping, reports squeezing sensation right side, reports oral intake is good. 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 He tolerated procedure well. He currently is doing well and denies significant complaints except for some pain on the right side. He has good oral intake. [facility] Medical History Male infertility IBS (irritable bowel syndrome) Morbid obesity Chronic diarrhea Acute diarrhea Abdominal gas pain Surgical History History of laparoscopic cholecystectomy (~02/14/24) Hx of cystoscopy Family History Mother No problems noted. Father No problems noted. Social History Housing: Apartment Alcohol intake: never Patient Tobacco Use Status: Never used Tobacco e-Cigarette/Vaping Use: Never Used Second Hand Smoke Exposure: No service: No Current occupational status: unemployed Cognitive needs: No Hearing needs: No Vision needs: Yes Review of Systems Const Denies chills and Denies fever(s) Card Denies chest pain, Denies dyspnea and Denies dyspnea on exertion Resp Denies cough, Denies dyspnea and Denies dyspnea on exertion GI Denies hematochezia and Denies change in bowel habits Denies hematuria and Denies difficulty urinating Musc Denies back pain and Denies limited range of motion Neuro Denies focal weakness and Denies convulsions Psych Denies depression and Denies mood swings Physical Exam Const General: comfortable and no acute distress Eyes Other: Anicteric Resp Effort & Inspection: normal respiratory effort GI Other: Incisions are well healed Palpation (GI): Soft to palpation, not firm and nontender Assessment & Plan Assessment & Plan (1) Gallstones: Code(s): K80.20 - Calculus of gallbladder without cholecystitis without obstruction Plan: Status post laparoscopic cholecystectomy. He is doing well postop. All incisions are well healed. His path report shows chronic cholecystitis and cholelithiasis He was advised to avoid lifting of anything more than 20 lb for at least 2 more weeks. He can follow up on a p.r.n. basis. Coding Level of Care Code Global (85077) Diagnoses Gallstones K80.20
== END 2024-02-27 15:45 | disposition home or self-care (01) ==
PROVIDERS: PCP Internal Medicine; Visit Provider Surgery
DX: K80.20 Calculus of gallbladder without cholecystitis without obstruction (principal)
CPT/HCPCS: 99024

== ENCOUNTER → 2024-02-27 15:08 | Outpatient (BNVA) | payer OTHER, SELFPAY | PROVIDERS: PCP Internal Medicine; Visit Provider Surgery ==

== ENCOUNTER 2024-03-02 12:32 | Outpatient (AMB) | payer OTHER, SELFPAY ==
--- NOTE | 2024-03-02 12:58 | MHC.OFFVIS ---
Intake Visit Reasons: PVR/UA Intake Note: Patient is Present for Follow Up Urinalysis/PVR Urology Medication: Pentoxifylline Antibiotic Allergies: None Blood Thinners: None PVR:0 Patient states that he has been having some urinary issues, and concerning feeling at urethra. Patient states this started around end of January after his gallbladder surgery Allergies No Known Allergies Allergy (Verified 05/09/24 15:24) HPI Comments Details: Ankit is a pleasant male. He is a patient of Dr. Garza. He is seen for the following urologic conditions - Chronic pelvic pain syndrome - weak urinary stream with nocturia - male infertility Telemedicine Evaluation 15 min Consultation [employer] [facility] 3 months postprocedure Will like to repeat semen examined urination Discussed fellows mail order testing He would like to do this Infertility - [facility] MA[facility]GER VEHICLE Dr Cruz Male infertility Accompanied by partner Have been trying to have a child for 18 months Discussed basal metabolic temperature monitoring Underwent evaluation of [facility]. Testosterone panel performed normal, genetic deletion analysis normal. Semen Analysis - 08/13 low concentration, normal volume, pH 7.2 - suggestive of ejaculatory duct obstruction - 11/12 azoospermic low concentration - 12/14 Bilateral vesiculoscopy with bilateral seminal vesicle incision Chronic pelvic pain syndrome Has boggy prostate on examination High tone pelvic floor with pain particularly on left pelvic sidewall Completed pelvic floor physical therapy with some improvement Good response to combination therapy [facility] Medical History (Updated 05/09/24 @ 15:32 by RIGO Ricketts) Screening for hypothyroidism Screening for diabetes mellitus Screening for hyperlipidemia Adult general medical exam Male infertility IBS (irritable bowel syndrome) Morbid obesity Chronic diarrhea Acute diarrhea Abdominal gas pain Surgical History History of laparoscopic cholecystectomy (~02/14/24) Hx of cystoscopy Family History Mother No problems noted. Father No problems noted. Social History Housing: Apartment Alcohol intake: never Patient Tobacco Use Status: Never used Tobacco e-Cigarette/Vaping Use: Never Used Second Hand Smoke Exposure: No service: No Current occupational status: unemployed Cognitive needs: No Hearing needs: No Vision needs: Yes Review of Systems Const Denies chills and Denies fever(s) Card Reports no additional complaints and Denies syncope Resp Denies cough GI Denies abdominal pain and Denies heartburn Reports as per HPI and Denies change in libido Neuro Denies syncope Psych Denies change in libido Endo Denies change in libido Physical Exam Const General: cooperative, healthy appearing, comfortable and no acute distress Orientation/consciousness: patient oriented x3 HEENT Face and sinus: Yes normal facial exam Mouth: moist mucous membranes Neck Neck: Yes normal visual inspection, Yes full ROM and Yes trachea midline Chest Chest palpation & inspection: normal inspection of the chest Resp Effort & Inspection: normal respiratory effort, able to speak in complete sentences and no respiratory distress GI Inspection: Yes normal to inspection Back/Spine/Pelvis Cervical Spine: normal cervical lordosis Thoracic/Lumbar Spine: thoracic and lumbar spine normal to inspection Skin General skin exam: no rashes or lesions noted Neuro General: patient oriented x3, gait normal, tone normal and moves all extremities Extrem General: Yes normal to inspection and Yes capillary refill normal Office Procedures Post Void Residual Post Residual Void Post Void Residual (PVR): 0 17422-Rqju Void Residual by ultrasound Results AMB Urinalysis, Automated UA Leukoctes 0 Garth/uL Last Edit by ENOCH Gil on 03/02/24 13:10 UA Nitrite Negative Last Edit by Ning Head [facility] on 03/02/24 13:10 UA Urobilinogen 0.2 mg/dL Last Edit by Ning Head [facility] on 03/02/24 13:10 UA Protein 0 mg/dL Last Edit by Ning Head [facility] on 03/02/24 13:10 UA pH 8.0 Last Edit by Ning Head [facility] on 03/02/24 13:10 UA Blood 0 Rico/uL Last Edit by Ning Head [facility] on 03/02/24 13:10 UA Specific [place] 1.010 Last Edit by Ning Head [facility] on 03/02/24 13:10 UA Ketone Negative Last Edit by Ning Head [facility] on 03/02/24 13:10 UA Bilirubin 0 mg/dL Last Edit by Ning Head [facility] on 03/02/24 13:10 UA Glucose 0 mg/dL Last Edit by ENOCH Gil on 03/02/24 13:10 Results Reviewed Results Reviewed: Laboratory Last Values Urine pH (Auto) 8.0 03/02/24 13:07 Specific [place] (Auto) 1.010 03/02/24 13:07 Urine Protein (Auto) 0 mg/dL 03/02/24 13:07 Glucose (UA)(Auto) 0 mg/dL 03/02/24 13:07 Urine Ketones (Auto) Negative 03/02/24 13:07 Urine Blood (Auto) 0 Rico/uL 03/02/24 13:07 Urine Nitrite (Auto) Negative 03/02/24 13:07 Urine Bilirubin (Auto) 0 mg/dL 03/02/24 13:07 Urine Urobilinogen (Auto) 0.2 mg/dL 03/02/24 13:07 Leukocyte Esterase (Auto) 0 Garth/uL 03/02/24 13:07 Assessment & Plan Assessment & Plan (1) Painful ejaculation: Code(s): N53.12 - Painful ejaculation Category: Medical (2) Oligospermia: Code(s): N46.11 - Organic oligospermia Category: Medical Plan Complete mail-order analysis Orders: Orders AMB Post Void Residual by ultrasound 03/02/24 N32.0 - Bladder-neck obstruction AMB Urinalysis Automated 03/02/24 Z13.9 - Encounter for screening, unspecified Patient Instructions: Imaging studies, laboratory and physical exam results were discussed and reviewed in detail. No major barriers to patient understanding were identified. An opportunity to ask questions regarding the treatment plan was provided. All questions were answered. The patient expressed understanding and agreement with the above treatment plan. The patient is aware they should contact our office by phone for worsening of their current condition or the appearance of new urologic symptoms. Compliance is encouraged with any medications and followup testing that is ordered. It is a privilege to participate in the urologic care of your patient. If you have any questions or concerns regarding treatment for the above conditions, or other urologic issues, please do not hesitate to contact me. The office telephone contact is [phone]. This note is constructed using voice recognition software. While every effort has been made to ensure accuracy salon stylist errors may have been included. Yours sincerely, Dr Matt Stahl MD, [facility] - Urology Providers of Expert, Compassionate Care for the Genitourinary System Coding Level of Care Code Est Pt Level 3 (43834) Diagnoses Painful ejaculation N53.12 Oligospermia N46.11 CPT Codes Post Residual Void - PVR CPT Code: 66650-Ljoj Void Residual by ultrasound ([id number])
== END 2024-03-02 13:26 | disposition home or self-care (01) ==
PROVIDERS: PCP Internal Medicine; Visit Provider Urology
DX: N53.12 Painful ejaculation (principal); N46.11 Organic oligospermia
CPT/HCPCS: 99213

== ENCOUNTER → 2024-03-02 12:32 | Outpatient (BNVA) | payer OTHER, SELFPAY | PROVIDERS: PCP Internal Medicine; Visit Provider Urology | DX: N53.12 Painful ejaculation (principal); N46.11 Organic oligospermia; N32.0 Bladder-neck obstruction | CPT/HCPCS: 51798; 81003 ==

== ENCOUNTER 2024-03-12 15:13 | Outpatient (AMB) | payer OTHER, SELFPAY ==
[2024-03-12 15:16] VITALS: BP 124/72; PULSE 81; O2SAT 99; BMI 29.5
--- NOTE | 2024-03-12 15:16 | A.OFFPC_ITS ---
Vital Signs 03/12/24 15:16 Height 6 ft 2 in Weight 230 lb BMI 29.5 BP 124/72 Blood Pressure Location Lt brachial Position Sitting Pulse 81 Pulse Source Pulse Oximeter Pulse Oximetry (%) 99 Oxygen Delivery Method Room Air Intake Visit Reasons: Annual Exam Intake Note: Patient is here today for a physical. Migration Agent Required: No Accompanied by: Self / Same As Patient Allergies No Known Allergies Allergy (Verified 03/12/24 15:32) Medication List - Last Reconciled 03/12/24 by Umu Garza MD arginine (L-arginine) 500 mg PO DAILY 90 days [bromelain 80 mg PO DAILY] celecoxib (Celebrex) 200 mg PO DAILY PRN cholecalciferol (vitamin D3) 25 mcg PO DAILY xidhgi-beshaksq-frcrajq 20,880-78,300- 78,300 unit (Viokace) 2 caps PO TID oxycodone-acetaminophen 5-325 mg (Percocet) 1 tab PO Q4-6H PRN pentoxifylline ER 400 mg PO BID 90 days vitamin E (dl, acetate) 450 mg PO DAILY 90 days Tobacco use date assessed: 03/12/24 Dental Screening Dental Screen Date: 03/12/24 Did you have a dental visit in the last 12 months?: No Did you have a dental problem in the last 6 months where you did not have access to dental care?: No HPI HPI Comments History of Present Illness Details This is a 28-year-old male that comes for his physical exam. Complains of bilateral ankle pain that started about a year ago intermittent in nature. Has full active range of motion. Walk with no assistive device. Also has male infertility follow by Urology. No chest pain or shortness of breath. [facility] Medical History Male infertility IBS (irritable bowel syndrome) Morbid obesity Chronic diarrhea Acute diarrhea Abdominal gas pain Surgical History History of laparoscopic cholecystectomy (~02/14/24) Hx of cystoscopy Family History Mother No problems noted. Father No problems noted. Social History Housing: Apartment Alcohol intake: never Patient Tobacco Use Status: Never used Tobacco e-Cigarette/Vaping Use: Never Used Second Hand Smoke Exposure: No service: No Current occupational status: unemployed Cognitive needs: No Hearing needs: No Vision needs: Yes Questionnaire PHQ-9 Over the last 2 weeks, how often have you been bothered by any of the following problems? 1. Little interest or pleasure in doing things: not at all 2. Feeling down, depressed, or hopeless: not at all 3. Trouble falling or staying asleep, or sleeping too much: not at all 4. Feeling tired or having little energy: not at all 5. Poor appetite or overeating: not at all 6. Feeling bad about yourself - or that you are a failure or have let yourself or your family down: not at all 7. Trouble concentrating on things, such as reading the newspaper or watching television: not at all 8. Moving or speaking so slowly that other people could have noticed. Or the opposite - being so fidgety or restless that you have been moving around a lot more than usual: not at all 9. Thoughts that you would be better off or of hurting yourself in some way: not at all Total score: 0 Depression Screening Interpretation: Negative Depression Screening Done: Yes 78889 - PHQ-9 Billing: Yes Source: Developed by Drs. Taj Lima, Kena Bradley, Jesus Alberto Gonzalez and colleagues, with an educational george from [employer]. Thrive Questionnaire Date Thrive assessed: 03/12/24 I am a: Patient What is your living situation today?: I have a steady place to live Within the past 12 months, did the food you bought not last and you didn't have the money to get more?: Never true Within the past 12 months, did you worry whether your food would run out before you got money to buy more?: Never true Do you have trouble paying for medicines?: No Do you have trouble getting transportation to medical appointments?: No Do you have trouble paying your heating and electricity bill?: No Do you have trouble taking care of your child, family member or friend?: No Do you have trouble with day-to-day activities such as bathing, preparing meals, shopping, managing finances, etc.?: No Are you currently unemployed and looking for a job?: No Are you interested in more education?: No Please select the resources that you would like help with: None Currently or been in a relationship where the following occur: no concerns reported THRIVE Score: 0 AUDIT C Alcohol Use Questionnaire (AUDIT-C) 1. How often do you have a drink containing alcohol?: Never 3. How often do you have six or more drinks on one occasion?: Never Total Score: 0 Score Reviewed/Action Taken: No FRANK-7 AMB Questionnaire FRANK-7 Date FRANK - 7 assessed: 03/12/24 Feeling nervous, anxious, or on edge: 0 = Not at all Not being able to stop or control worryin = Not at all Worrying too much about different things: 0 = Not at all Trouble relaxin = Not at all Being so restless that it is hard to sit still: 0 = Not at all Becoming easily annoyed or irritable: 0 = Not at all Feeling afraid as if something awful might happen: 0 = Not at all Total FRANK-7 score (0-4 normal; 5-9 mild; 10-14 moderate; 15-21 severe): 0 Source: Developed by Drs. Taj Lima, Kena Bradley, Jesus Alberto Gonzalez and colleagues, with an educational george from [employer]. FRANK-7 Assessment Billing FRANK-7 Assessment Tool: FRANK-7 Assessment 23814 Review of Systems Const All systems reviewed & are unremarkable except as noted in HPI and below Eyes Reports no additional complaints, Denies change in vision and Denies other visual disturbances Card Denies chest pain at rest, Denies chest pain with activity, Denies edema, Denies irregular heart rhythm, Denies claudication, Denies dyspnea, Denies dyspnea on exertion, Denies orthopnea, Denies paroxysmal nocturnal dyspnea and Denies slow heart rate Resp Denies cough, Denies dyspnea and Denies dyspnea on exertion GI Denies abdominal pain, Denies change in bowel habits, Denies excessive flatus, Denies nausea and Denies vomiting Physical exam (Primary Care) Vital Signs: Last Vital Signs Pulse 81 03/12/24 15:16 BP 124/72 03/12/24 15:16 Pulse Ox 99 03/12/24 15:16 Oxygen Delivery Method Room Air 03/12/24 15:16 BMI result Body Mass Index 29.5 Tobacco/Smoking Status: Tobacco use Status Tobacco use date assessed 03/12/24 03/12/24 15:18 Patient Tobacco Use Status Never used Tobacco 03/12/24 15:18 e-Cigarette/Vaping Use Never Used 03/12/24 15:18 PHQ-9: PHQ-9 Score PHQ-9: Total score 0 03/12/24 15:34 Depression Screening Interpretation: Negative Thrive Assessment: Date of Thrive Assessment Date Thrive assessed 03/12/24 03/12/24 15:18 Currently or been in a relationship where the following occur: no concerns reported Const Orientation/consciousness: patient oriented x3 HENMT Head: Yes normal to inspection, Yes normocephalic and Yes atraumatic Ears: external ears normal Eyes General: appearance normal, both eyes and all related structures Eyelids: Yes eyelids normal Conjunctivae: conjunctivae normal Neck Neck: Yes normal visual inspection and Yes supple Resp Effort & Inspection: normal respiratory effort Auscultation: clear to auscultation bilaterally Cardio Jugular venous distension: no JVD Rate: regular rate Rhythm: regular rhythm Heart sounds: S1 normal heart sound present and S2 normal heart sound present GI Inspection: Yes normal to inspection Palpation (GI): Soft to palpation and nontender Auscultation: normal bowel sounds Skin General skin exam: no rashes or lesions noted Neuro General: patient oriented x3 and no focal motor deficits Extrem General: Yes full ROM Psych Appearance: grossly normal Assessment and Plan Assessment & Plan (1) Adult general medical exam: Code(s): Z00.00 - Encounter for general adult medical examination without abnormal findings Plan: Repeat in a year. Orders: Orders XR ankle RT 2V Today M25.571 - Pain in right ankle and joints of right foot Comprehensive [place]. Panel Fast Today Z00.00 - Encounter for general adult medical examination without abnormal findings XR ankle LT 2V Today M25.572 - Pain in left ankle and joints of left foot Lipid Panel Today Z00.00 - Encounter for general adult medical examination without abnormal findings Coding Level of Care Code Est Pt Prev Care 18-39y(25783) Diagnoses Adult general medical exam Z00.00 Additional Codes FRANK-7 Assessment Billing - FRANK-7 Assessment Tool: FRANK-7 Assessment 44849 ([id number]) Time Spent (min) 30
== END 2024-03-12 15:55 | disposition home or self-care (01) ==
LOC: HO.HMGH 15:16
PROVIDERS: PCP Internal Medicine; Visit Provider Internal Medicine
DX: Z00.00 Encounter for general adult medical examination without abnormal findings (principal)
CPT/HCPCS: 99395

== ENCOUNTER 2024-03-13 15:00 | Outpatient (AMB) | payer OTHER, SELFPAY ==
--- NOTE | 2024-03-13 15:09 | MHC.OFFVIS ---
Intake Visit Reasons: 1m follow up (fellows results) Intake Note: Patient is Present for Telephone Follow Up Urology Med: Arginine, Vitamin E, Pentoxifylline Antibiotic Allergy: None Blood Thinner: None Allergies No Known Allergies Allergy (Verified 03/12/24 15:32) Medication List - Last Reconciled 03/13/24 by Matt Stahl MD arginine (L-arginine) 500 mg PO DAILY 90 days [bromelain 80 mg PO DAILY] celecoxib (Celebrex) 200 mg PO DAILY PRN cholecalciferol (vitamin D3) 25 mcg PO DAILY jxllew-zrcweiuy-rjbfbgk 20,880-78,300- 78,300 unit (Viokace) 2 caps PO TID oxycodone-acetaminophen 5-325 mg (Percocet) 1 tab PO Q4-6H PRN pentoxifylline ER 400 mg PO BID 90 days vitamin E (dl, acetate) 450 mg PO DAILY 90 days HPI Comments Details: Ankit is a pleasant male. He is a patient of Dr. Garza. He is seen for the following urologic conditions - Chronic pelvic pain syndrome - weak urinary stream with nocturia - male infertility Telemedicine Evaluation 15 min Consultation [employer] Video Completed [place] fertility kit Has small number of sperm within sample Would still be to find a severe infertility Significant improvement in pelvic pain in discomfort that he was experiencing at ejaculation following vesiculoscopy Referral to Dr. Benjamin - [facility] urology infertility specialist Infertility - [facility] [employer] Dr Cruz Male infertility Accompanied by partner who is older Have been trying to have a child for 18 months Discussed basal metabolic temperature monitoring Underwent evaluation of [facility]. Testosterone panel performed normal, genetic deletion analysis normal. Semen Analysis - 08/13 low concentration, normal volume, pH 7.2 - suggestive of ejaculatory duct obstruction - 11/12 azoospermic low concentration - 12/14 Bilateral vesiculoscopy with bilateral seminal vesicle incision Chronic pelvic pain syndrome Has boggy prostate on examination High tone pelvic floor with pain particularly on left pelvic sidewall Completed pelvic floor physical therapy with some improvement Good response to combination therapy [facility] Medical History Male infertility IBS (irritable bowel syndrome) Morbid obesity Chronic diarrhea Acute diarrhea Abdominal gas pain Surgical History History of laparoscopic cholecystectomy (~02/14/24) Hx of cystoscopy Family History Mother No problems noted. Father No problems noted. Social History Housing: Apartment Alcohol intake: never Patient Tobacco Use Status: Never used Tobacco e-Cigarette/Vaping Use: Never Used Second Hand Smoke Exposure: No service: No Current occupational status: unemployed Cognitive needs: No Hearing needs: No Vision needs: Yes Review of Systems Const All systems reviewed & are unremarkable except as noted in HPI and below Reports no additional complaints Resp Reports no additional complaints GI Reports no additional complaints Reports as per HPI Musc Reports no additional complaints Physical Exam Telemedicine evaluation Appropriate responses Regular breathing rate and rhythm HEENT Head: Yes normal to inspection Ears: hearing grossly normal bilaterally Eyes General: appearance normal, both eyes and all related structures Neck Neck: Yes normal visual inspection Chest Chest palpation & inspection: normal inspection of the chest Resp Effort & Inspection: normal respiratory effort and able to speak in complete sentences Telehealth Telehealth Location of provider rendering services: practice address Location of patient: address on file Patient Identification confirmed using: Name, : Yes Telehealth method: video Patient verbally consented to treatment: Yes Patient verbally consented to billing insurance company: Yes Patient informed of any privacy concerns related to visit: Yes Assessment & Plan Assessment & Plan (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 No major barriers to patient understanding were identified. An opportunity to ask questions regarding the treatment plan was provided. All questions were answered. The patient expressed understanding and agreement with the above treatment plan. The patient is aware they should contact our office by phone for worsening of their current condition or the appearance of new urologic symptoms. Compliance is encouraged with any medications and followup testing that is ordered. It is a privilege to participate in the urologic care of your patient. If you have any questions or concerns regarding treatment for the above conditions, or other urologic issues, please do not hesitate to contact me. The office telephone contact is [phone]. This note is constructed using voice recognition software. While every effort has been made to ensure accuracy returned goods sorter errors may have been included. Yours sincerely, Dr Matt Stahl MD, [facility] - Urology Providers of Expert, Compassionate Care for the Genitourinary System Coding Level of Care Code Tele Est Pt Level 3 (27340) Diagnoses Azoospermia N46.01 Painful ejaculation N53.12
== END 2024-03-13 15:32 | disposition home or self-care (01) ==
LOC: HO.HUSH 15:00
PROVIDERS: PCP Internal Medicine; Visit Provider Urology
DX: N46.01 Organic azoospermia (principal); N53.12 Painful ejaculation
CPT/HCPCS: 99213

== ENCOUNTER → 2024-03-13 15:00 | Outpatient (BNVA) | payer OTHER, SELFPAY | PROVIDERS: PCP Internal Medicine; Visit Provider Urology ==

== ENCOUNTER 2024-05-09 15:12 | Outpatient (AMB) | payer OTHER, SELFPAY ==
[2024-05-09 15:14] VITALS: BP 128/69; PULSE 77; BMI 30.1
--- NOTE | 2024-05-09 15:14 | MHC.OFFVIS ---
Vital Signs 05/09/24 15:14 Height 6 ft 2 in Weight 234 lb 9.149 oz BMI 30.1 BP 128/69 Blood Pressure Location Rt brachial Position Sitting Pulse 77 Intake Visit Reasons: 3 month follow up Intake Note: Ankit returns in 3 months follow up of IBS. CC: Patient states that he was doing better since his cholecystectomy but on Tuesday ate corn and he had a flare up . Per patient he is not having any more back pain or RUQ abd pain. He states he only gets mushy and loose stools if he eats fats . Head Of Marketing Required: No Accompanied by: Allergies No Known Allergies Allergy (Verified 05/09/24 15:24) HPI HPI 3 month follow up: Details: Assessment & Plan (1) Irritable bowel syndrome with diarrhea: Code(s): K58.0 - Irritable bowel syndrome with diarrhea (2) Biliary dyskinesia: Comment: HIDA SCAN 12/06/22 IMPRESSION: 1. Visualization of the gallbladder is evidence of a patent cystic duct and strong evidence against the diagnosis of acute cholecystitis. The common bile duct is patent. Liver function appears normal. ? 2. Poor gallbladder emptying and a low gallbladder ejection fraction are evidence of impaired gallbladder contractility and most likely due to chronic cholecystitis Code(s): K82.8 - Other specified diseases of gallbladder (3) Abdominal gas pain: Code(s): R14.1 - Gas pain Plan He is here today with his who is supportive. He had his prostate cleaned out via cystoscopy and this seems to have improved his bowel fxn and GB problems. BUT he still feels pressure and is having a dre next week. He has been doing well without taking the Creon or any of the other GI medications at this time! We discuss possible post dre syndrome, and of course this does not happen everyone but if he does have this problem he definitely should count on me to help him with it. ROV 3 mos. On 02/11/23 @ 14:49 Susie Coulter Wrote To Renee,February good news! It worked, no PA needed. I have called the pharmacy and it does have to be ordered so it will be ready on Tuesday, patient also informed. On 02/11/23 @ 11:31 Rima Duran Wrote To Rima Duran (2) I have tried sending Viokace. If this does not work please let me know and we will progress to others..... Medication Orders gjajxy-nrvvjdpu-wylnolg 20,880-78,300- 78,300 unit 2 caps PO TID 180 tabs 3RF New xdlach-zapwsbau-sdlkfqd 21,000-54,700- 83,900 unit 1 cap PO QID 120 caps 3RF Discontinued hippyo-hmfzxayx-nftojhn 6,000-19,000 -30,000 unit 1 cap PO .qidac 120 caps 0RF Discontinued TODAY'S VISIT He is here today with his and he has just had his gallbladder out. He seems to have some trouble figuring out what he can eat in terms of fat loading before he will have some upset stomach and diarrhea. I educate him that it can take as much as a year for his body to adjust to see whether not his pancreas can compensate for the lack of enzymes the gallbladder produces. In the meantime he can consider either watching and waiting, restarting his Creon, or of course we could consider a bile binding agent. He is much better in terms of the generalized abdominal pain so he is quite happy with that. He seems to be healing well from his surgery. For now will do an follow-up in 3 months to see how he is doing as he feels like things are not going well he can always see me sooner. [facility] Medical History (Updated 05/09/24 @ 15:32 by RIGO Ricketts) Screening for hypothyroidism Screening for diabetes mellitus Screening for hyperlipidemia Adult general medical exam Male infertility IBS (irritable bowel syndrome) Morbid obesity Chronic diarrhea Acute diarrhea Abdominal gas pain Surgical History (Updated 05/10/24 @ 15:00 by RIGO Ricketts) History of laparoscopic cholecystectomy (~02/14/24) Hx of cystoscopy Family History Mother No problems noted. Father No problems noted. Social History (Reviewed 05/09/24 @ 15:24 by Johan Rojas [facility] [address] [facility]) Housing: Apartment Alcohol intake: never Patient Tobacco Use Status: Never used Tobacco e-Cigarette/Vaping Use: Never Used Second Hand Smoke Exposure: No service: No Current occupational status: unemployed Cognitive needs: No Hearing needs: No Vision needs: Yes Review of Systems Const Denies fatigue, Denies fever(s), Denies night sweats, Denies poor appetite and Denies weight loss Eyes Details: glasses Reports requires corrective lenses ENT Reports Normal hearing present, Denies dental pain, Denies dysphagia, Denies hearing loss, Denies mouth pain, Denies odynophagia, Denies throat swelling, Denies tongue swelling and Reports other (Dentition adequate) Card Reports no additional complaints Resp Reports no additional complaints GI Details: Denies abdominal pain, Denies melena, Reports bloating, Denies hematochezia, Denies constipation, Denies GI cramping, Denies dysphagia, Denies excessive flatus, Denies early satiety, Denies heartburn, Denies diarrhea, Reports loose stools, Denies nausea, Denies odynophagia, Denies vomiting and Denies hematemesis Skin/Breast Denies pruritus, Denies lesions, Denies rash and Denies jaundice Neuro Reports Normal hearing present and Denies Abnormal speech present Endo Denies fatigue Aller/Immun Denies throat swelling and Denies tongue swelling Physical Exam Vital Signs: Last Vital Signs Pulse 77 05/09/24 15:14 BP 128/69 05/09/24 15:14 BMI result Body Mass Index 30.1 Const General: cooperative, no acute distress, well developed and well groomed Nutritional Appearance: well nourished and obese Orientation/consciousness: oriented to person, oriented to place and oriented to time Limitations: No language barrier HEENT Head: Yes normocephalic and Yes atraumatic Eyes General: appearance normal, both eyes and all related structures Pupils: Equal, round and reactive pupils present Neck Neck: Yes normal visual inspection and Yes no lymphadenopathy Thyroid: Thyroid normal Resp Effort & Inspection: normal respiratory effort and able to speak in complete sentences Auscultation: clear to auscultation bilaterally Cardio Rate: regular rate Rhythm: regular rhythm Heart sounds: Normal, physiologic split S2 sound present Peripheral pulses: radial pulses present and posterior tibial pulses present GI Inspection: No distended and No Abdominal panniculus present Palpation (GI): Soft to palpation, nontender, no guarding, not rigid and No hepatosplenomegaly present Percussion: Yes normal to percussion Auscultation: normal bowel sounds Rectal Exam - Male: Yes deferred Abdomen image: 1. well healing surgical scars 2. 3. Skin General skin exam: no rashes or lesions noted, turgor normal, skin not dry, no jaundice, No spider nevi and no striae Rashes: no rashes Nails: normal Neuro General: oriented to person, oriented to place and oriented to time Cranial nerves: Yes Equal, round and reactive pupils present and Yes Normal hearing present Speech: No Abnormal speech present Extrem General: Yes normal to inspection, No clubbing, No cyanosis and No edema Psych Appearance: grossly normal and well kempt Mental Status: mental status grossly normal Speech and movement: Normal speech and movement present Affect: normal affect Attitude: cooperative Thought process: Normal thought process present and not confabulating Thought content: Normal thought content present Insight: Fair insight present (Psych) Judgement: Fair judgement present (Psych) Assessment & Plan Assessment & Plan (1) Irritable bowel syndrome with diarrhea: Code(s): K58.0 - Irritable bowel syndrome with diarrhea Category: Medical (2) Biliary dyskinesia: Comment: HIDA SCAN 12/06/22 IMPRESSION: 1. Visualization of the gallbladder is evidence of a patent cystic duct and strong evidence against the diagnosis of acute cholecystitis. The common bile duct is patent. Liver function appears normal. ? 2. Poor gallbladder emptying and a low gallbladder ejection fraction are evidence of impaired gallbladder contractility and most likely due to chronic cholecystitis Code(s): K82.8 - Other specified diseases of gallbladder Category: Medical Plan He is here today with his and he has just had his gallbladder out. He seems to have some trouble figuring out what he can eat in terms of fat loading before he will have some upset stomach and diarrhea. I educate him that it can take as much as a year for his body to adjust to see whether not his pancreas can compensate for the lack of enzymes the gallbladder produces. In the meantime he can consider either watching and waiting, restarting his Creon, or of course we could consider a bile binding agent. He is much better in terms of the generalized abdominal pain so he is quite happy with that. He seems to be healing well from his surgery. For now will do an follow-up in 3 months to see how he is doing as he feels like things are not going well he can always see me sooner. Coding Level of Care Code Est Pt Level 3 (46474) Diagnoses Irritable bowel syndrome with diarrhea K58.0 Biliary dyskinesia K82.8
== END 2024-05-09 15:43 | disposition home or self-care (01) ==
PROVIDERS: PCP Internal Medicine; Visit Provider Nurse Practitioner
DX: K58.0 Irritable bowel syndrome with diarrhea (principal); K82.8 Other specified diseases of gallbladder
CPT/HCPCS: 99213

== ENCOUNTER → 2024-05-09 15:12 | Outpatient (BNVA) | payer OTHER, SELFPAY | PROVIDERS: PCP Internal Medicine; Visit Provider Nurse Practitioner ==

== ENCOUNTER 2024-05-17 06:10 | Emergency (ER) | payer OTHER, SELFPAY ==
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
[2024-05-17 06:17] VITALS: BP 133/70; PULSE 80; O2SAT 98
[2024-05-17 06:19] VITALS: BP 132/79; PULSE 69; RESP 18; TEMP 36.6; O2SAT 99; BMI 30.7
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
[2024-05-17] MEDS: Ibuprofen 600 MG TABLET PO (08:28)
[2024-05-17] MEDS: Cyclobenzaprine HCl 5 MG TABLET PO (08:29)
[2024-05-17] MEDS: Ketorolac Tromethamine 15 MG/ML VIAL IM (08:29)
[2024-05-17] MEDS: Acetaminophen 325 MG TABLET 975 MG PO (08:29)
[2024-05-17 08:30] VITALS: BP 129/87; PULSE 67; RESP 17; O2SAT 98
[2024-05-17 09:58] VITALS: BP 119/75; PULSE 63; RESP 18; O2SAT 99
[2024-05-17 10:14] VITALS: BP 119/75; PULSE 63; RESP 18; TEMP 36.6; O2SAT 99
== END 2024-05-17 10:15 | disposition home or self-care (01) ==
PROVIDERS: Emergency Provider Emergency Medicine; PCP Internal Medicine
DX: S60.812A Abrasion of left wrist, initial encounter (principal); V47.5XXA Car driver injured in collision with fixed or stationary object in traffic accident, initial encounter; Y93.89 Activity, other specified; Y92.410 Unspecified street and highway as the place of occurrence of the external cause; Y99.9 Unspecified external cause status
CPT/HCPCS: 71045; 73100; 96372; 99284; 99285; J1885

== ENCOUNTER 2024-08-24 16:31 | Outpatient (AMB) | payer OTHER, SELFPAY ==
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
[2024-08-24 16:38] VITALS: BP 130/67; PULSE 65
== END 2024-08-24 16:49 | disposition home or self-care (01) ==
PROVIDERS: PCP Internal Medicine; Visit Provider Nurse Practitioner
DX: Z90.49 Acquired absence of other specified parts of digestive tract (principal); K82.8 Other specified diseases of gallbladder
CPT/HCPCS: 99213

== ENCOUNTER → 2024-08-24 16:31 | Outpatient (BNVA) | payer OTHER, SELFPAY | PROVIDERS: PCP Internal Medicine; Visit Provider Nurse Practitioner ==

== ENCOUNTER 2024-09-12 14:12 | Outpatient (AMB) | payer OTHER, SELFPAY ==
--- NOTE | 2024-09-12 14:14 | A.OFFVIS_ITS ---
Intake Visit Reasons: 6m follow up Intake Note: Patient is present for Infertility Follow Up Urology Med: Vitamin E Antibiotic Allergy: None Blood Thinner: None Board Of Directors Required: No Dishwasher Preparer: Dishwasher Preparer Present Accompanied by: partner Allergies No Known Allergies Allergy (Verified 09/12/24 14:16) HPI Comments Details: Ankit is a pleasant male. He is a patient of Dr. Garza. He is seen for the following urologic conditions - Chronic pelvic pain syndrome - weak urinary stream with nocturia - male infertility Significant improvement in pelvic pain in discomfort that he was experiencing at ejaculation following vesiculoscopy Does report some difficulty with maintaining erections Trial daily tadalafil Has seen Dr. 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 Testosterone panel performed normal, genetic deletion analysis normal. Semen Analysis - 08/13 low concentration, normal volume, pH 7.2 - suggestive of ejaculatory duct obstruction - 11/12 azoospermic low concentration - 12/14 Bilateral vesiculoscopy with bilateral seminal vesicle incision Chronic pelvic pain syndrome Has boggy prostate on examination High tone pelvic floor with pain particularly on left pelvic sidewall Completed pelvic floor physical therapy with some improvement Good response to combination therapy PFSH Medical History Screening for hypothyroidism Screening for diabetes mellitus Screening for hyperlipidemia Adult general medical exam Male infertility IBS (irritable bowel syndrome) Morbid obesity Chronic diarrhea Acute diarrhea Abdominal gas pain Surgical History History of laparoscopic cholecystectomy (~02/14/24) Hx of cystoscopy Family History Mother No problems noted. Father No problems noted. Social History Housing: Apartment Alcohol intake: never Patient Tobacco Use Status: Never used Tobacco e-Cigarette/Vaping Use: Never Used Second Hand Smoke Exposure: No service: No Current occupational status: unemployed Cognitive needs: No Hearing needs: No Vision needs: Yes Review of Systems Const Denies chills and Denies fever(s) Card Reports no additional complaints and Denies syncope Resp Denies cough GI Denies abdominal pain and Denies heartburn Reports as per HPI and Denies change in libido Neuro Denies syncope Psych Denies change in libido Endo Denies change in libido Physical Exam Const General: cooperative, healthy appearing, comfortable and no acute distress Orientation/consciousness: patient oriented x3 HEENT Face and sinus: Yes normal facial exam Mouth: moist mucous membranes Neck Neck: Yes normal visual inspection, Yes full ROM and Yes trachea midline Chest Chest palpation & inspection: normal inspection of the chest Resp Effort & Inspection: normal respiratory effort, able to speak in complete sentences and no respiratory distress GI Inspection: Yes normal to inspection Back/Spine/Pelvis Cervical Spine: normal cervical lordosis Thoracic/Lumbar Spine: thoracic and lumbar spine normal to inspection Skin General skin exam: no rashes or lesions noted Neuro General: patient oriented x3, gait normal, tone normal and moves all extremities Extrem General: Yes normal to inspection and Yes capillary refill normal Assessment & Plan Assessment & Plan (1) Erectile dysfunction: Code(s): N52.9 - Male erectile dysfunction, unspecified Category: Medical Plan Trial daily tadalafil He will call for follow-up Medications: New tadalafil [facility] [id number] [facility] Group DR33 5 mg PO DAILY 90 tabs 0RF sexual activity 90 days N52.9 - Male erectile dysfunction, unspecified Patient Instructions: Imaging studies, laboratory and physical exam results were discussed and reviewed in detail. No major barriers to patient understanding were identified. An opportunity to ask questions regarding the treatment plan was provided. All questions were answered. The patient expressed understanding and agreement with the above treatment plan. The patient is aware they should contact our office by phone for worsening of their current condition or the appearance of new urologic symptoms. Compliance is encouraged with any medications and followup testing that is ordered. It is a privilege to participate in the urologic care of your patient. If you have any questions or concerns regarding treatment for the above conditions, or other urologic issues, please do not hesitate to contact me. The office telephone contact is [phone]. This note is constructed using voice recognition software. While every effort has been made to ensure accuracy tier truck driver errors may have been included. Yours sincerely, Dr Matt Stahl MD, [facility] [place] - Urology Providers of Expert, Compassionate Care for the Genitourinary System Coding Level of Care Code Est Pt Level 3 (70606) Diagnoses Erectile dysfunction N52.9
== END 2024-09-12 14:52 | disposition home or self-care (01) ==
PROVIDERS: PCP Internal Medicine; Visit Provider Urology
DX: N52.9 Male erectile dysfunction, unspecified (principal)
CPT/HCPCS: 99213

== ENCOUNTER → 2024-09-12 14:12 | Outpatient (BNVA) | payer OTHER, SELFPAY | PROVIDERS: PCP Internal Medicine; Visit Provider Urology ==

== ENCOUNTER 2024-10-24 13:57 | Outpatient (AMB) | payer OTHER, SELFPAY ==
--- NOTE | 2024-10-24 13:58 | MHC.OFFVIS ---
Intake Visit Reasons: 6w follow up Intake Note: Patient is present for 6M F/U Urology Medication:TADALAFIL,VITAMIN E Antibiotic Allergy:NONE Blood Thinner:NONE Podiatrist Orthopedic Required: No Allergies No Known Allergies Allergy (Verified 10/24/24 13:59) HPI Comments Details: Ankit is a pleasant male. He is a patient of Dr. Garza. He is seen for the following urologic conditions - Chronic pelvic pain syndrome - Weak urinary stream with nocturia - Male infertility Telemedicine Evaluation 15 min Consultation [employer] [place] Video attempted Good response to daily tadalafil for maintaining erections Refill provided Six-month follow-up Significant improvement in pelvic pain in discomfort that he was experiencing at ejaculation following vesiculoscopy Has seen Dr. Benjamin - [facility] urology infertility specialist - he confirmed occasional well-developed sperm Would need ISCI Referral to Dr Judd [facility] versus [facility] General Infertility - [facility] FIRST COOK - Dr Cruz Male infertility Accompanied by partner who is older Have been trying to have a child for 18 months Discussed basal metabolic temperature monitoring Underwent evaluation of [facility] Urology. Testosterone panel performed normal, genetic deletion analysis normal. Semen Analysis - 08/13 low concentration, normal volume, pH 7.2 - suggestive of ejaculatory duct obstruction - 11/12 azoospermic low concentration - 12/14 Bilateral vesiculoscopy with bilateral seminal vesicle incision Chronic pelvic pain syndrome Has boggy prostate on examination High tone pelvic floor with pain particularly on left pelvic sidewall Completed pelvic floor physical therapy with some improvement Good response to combination therapy PFSH Medical History Screening for hypothyroidism Screening for diabetes mellitus Screening for hyperlipidemia Adult general medical exam Male infertility IBS (irritable bowel syndrome) Morbid obesity Chronic diarrhea Acute diarrhea Abdominal gas pain Surgical History History of laparoscopic cholecystectomy (~02/14/24) Hx of cystoscopy Family History Mother No problems noted. Father No problems noted. Social History Housing: Apartment Alcohol intake: never Patient Tobacco Use Status: Never used Tobacco e-Cigarette/Vaping Use: Never Used Second Hand Smoke Exposure: No service: No Current occupational status: unemployed Cognitive needs: No Hearing needs: No Vision needs: Yes Review of Systems Const Denies chills and Denies fever(s) Card Reports no additional complaints and Denies syncope Resp Denies cough GI Denies abdominal pain and Denies heartburn Reports as per HPI and Denies change in libido Neuro Denies syncope Psych Denies change in libido Endo Denies change in libido Physical Exam Const General: cooperative, healthy appearing, comfortable and no acute distress Orientation/consciousness: patient oriented x3 HEENT Face and sinus: Yes normal facial exam Mouth: moist mucous membranes Neck Neck: Yes normal visual inspection, Yes full ROM and Yes trachea midline Chest Chest palpation & inspection: normal inspection of the chest Resp Effort & Inspection: normal respiratory effort, able to speak in complete sentences and no respiratory distress GI Inspection: Yes normal to inspection Back/Spine/Pelvis Cervical Spine: normal cervical lordosis Thoracic/Lumbar Spine: thoracic and lumbar spine normal to inspection Skin General skin exam: no rashes or lesions noted Neuro General: patient oriented x3, gait normal, tone normal and moves all extremities Extrem General: Yes normal to inspection and Yes capillary refill normal Telehealth Telehealth Telehealth Platform: [employer] Location of provider rendering services: practice address Location of patient: address on file Patient Identification confirmed using: Name, : Yes Telehealth method: video Patient verbally consented to treatment: Yes Patient verbally consented to billing insurance company: Yes Patient informed of any privacy concerns related to visit: Yes Minutes spent on Phone/Video with Pt.: 15 Assessment & Plan Assessment & Plan (1) Chronic prostatitis/chronic pelvic pain syndrome: Code(s): N41.1 - Chronic prostatitis; G89.4 - Chronic pain syndrome Category: Medical (2) Male infertility: Code(s): N46.9 - Male infertility, unspecified Category: Medical (3) Erectile dysfunction: Code(s): N52.9 - Male erectile dysfunction, unspecified Category: Medical Plan Six-month follow-up Refill provided Medications: Refilled tadalafil RIGO [id number] [facility] Group DR33 5 mg PO DAILY 90 days 90 tabs 1RF sexual activity N52.9 - Male erectile dysfunction, unspecified Patient Instructions: Imaging studies, laboratory and physical exam results were discussed and reviewed in detail. No major barriers to patient understanding were identified. An opportunity to ask questions regarding the treatment plan was provided. All questions were answered. The patient expressed understanding and agreement with the above treatment plan. The patient is aware they should contact our office by phone for worsening of their current condition or the appearance of new urologic symptoms. Compliance is encouraged with any medications and followup testing that is ordered. It is a privilege to participate in the urologic care of your patient. If you have any questions or concerns regarding treatment for the above conditions, or other urologic issues, please do not hesitate to contact me. The office telephone contact is [phone]. This note is constructed using voice recognition software. While every effort has been made to ensure accuracy carbon brushes assembler errors may have been included. Yours sincerely, Dr Matt Stahl MD, [facility] - Urology Providers of Expert, Compassionate Care for the Genitourinary System Coding Level of Care Code Tele Est Pt Level 3 (39611) Diagnoses Chronic prostatitis/chronic pelvic pain syndrome N41.1; G89.4 Male infertility N46.9 Erectile dysfunction N52.9
--- OUTSIDE RECORDS SUMMARY | 2024-10-30 20:41 | XMS_ITS ---
Author Name [facility] Organization Unknown Results Test Name/Text Value Interpretation Date Range Source TESTOSTERONE 617ng/dL Normal [id number] 175 - 800 [facility] LUTEINIZING HORMONE 2.5mIU/mL Normal [id number] [facility] FOLLICLE STIM HORMONE 5.84mIU/mL Normal [id number] [facility] ESTRADIOL 41pg/mL Normal [id number] [facility] PROLACTIN 7.71ng/mL Normal [id number] [facility] History of Medication Use Medication Directions Dispensed Refills Start Date End Date Stat No known medications No known medications 2023 active Problems Problem Status Onset Date Problem Type Date of Resoluti on Source Male infertility active EncounterDiagnosisAct [facility]
== END 2024-10-24 16:28 | disposition home or self-care (01) ==
LOC: HO.HUSH 13:58
PROVIDERS: PCP Internal Medicine; Visit Provider Urology
DX: N41.1 Chronic prostatitis (principal); G89.4 Chronic pain syndrome; N46.9 Male infertility, unspecified; N52.9 Male erectile dysfunction, unspecified
CPT/HCPCS: 99213

== ENCOUNTER 2025-04-13 10:47 | Emergency (ER) | payer OTHER, SELFPAY ==
--- NOTE | ~2025-04-13 | US_ITS ---
CLINICAL HISTORY: left testicular pain US Scrotum with Doppler Comparison: None Findings: There are several small right testicular cysts the largest measuring 4.5 mm in greatest diameter. The right testicle measures 3.6 x 2 x 3.1 cm. The right testicle and epididymis are somewhat hyperemic. Left testicle normal echotexture, 3.7 x 1.6 x 2.6 cm. No hydroceles or varicoceles. The scrotum appears hyperemic. The area of the lump in upper left hemiscrotum may represent inflammatory tissue. There is no evidence of a mass or hernia. IMPRESSION: 1. Several small right testicular cysts. 2. Somewhat hyperemic right testicle and epididymis. Cannot exclude epididymal orchitis. 3. Hyperemic and likely inflamed scrotum. 4. Area of concern likely just represents some inflammatory tissue. A discrete mass is not identified. This document has been electronically signed by: Zafar Whelan MD on 04/13/2025 12:51:38
[2025-04-13 11:14] VITALS: BP 150/91; PULSE 92; RESP 16; TEMP 36.8; O2SAT 100; BMI 31.2
--- NOTE | 2025-04-13 11:16 | ED_ITS ---
HPI - General Adult General Chief complaint: Urogenital-Male Stated complaint: personal issue Time Seen by Provider: 04/13/25 12:25 Source: patient, RN notes reviewed and old records reviewed Mode of arrival: ambulatory History of Present Illness ED Provider: Diana Aguirre PA-C HPI narrative: 30-year-old male with a past medical history of IBS, presenting to the ED complaining of left testicular pain, swelling, mild erythema x 3 days. Reports chills yesterday. Admits had testicular sperm extraction on 03/18/2025 in [place] by Dr. Abilio Cha. Denies injury, trauma, fall, dysuria/ hematuria, abdominal pain, flank pain, fever Related Data Home Medications ?Medication ?Instructions ?Recorded ?Confirmed bromelain 80 mg PO DAILY 02/18/23 03/13/24 Previous Rx's ?Medication ?Instructions ?Recorded cholecalciferol (vitamin D3) 25 25 mcg PO DAILY #90 tabs 11/15/23 mcg (1,000 unit) tablet vitamin E (dl, acetate) 450 mg 450 mg PO DAILY 90 days #90 caps 02/01/24 (1,000 unit) capsule tadalafil 5 mg tablet 5 mg PO DAILY sexual activity 90 10/24/24 days #90 tabs Allergies Allergy/AdvReac Type Severity Reaction Status Date / Time No Known Allergies Allergy Verified 04/13/25 11:16 Review of Systems 2 Review of Systems: Yes all other systems are reviewed and are negative Constitutional: Constitutional: Reports as per [facility] Past Medical History Attestation statement: The following information was validated with the patient. Source: old records reviewed Medical History Screening for hypothyroidism Screening for diabetes mellitus Screening for hyperlipidemia Adult general medical exam Male infertility IBS (irritable bowel syndrome) Morbid obesity Chronic diarrhea Acute diarrhea Abdominal gas pain Surgical History History of laparoscopic cholecystectomy (~02/14/24) Hx of cystoscopy Family History Family History Mother No problems noted. Father No problems noted. Social History Social History Housing: Apartment Alcohol intake: never Patient Tobacco Use Status: Never used Tobacco Smoked in Last 30 Days: No e-Cigarette/Vaping Use: Never Used Second Hand Smoke Exposure: No Use of substances other than those prescribed or required for medical reasons: No Advance Directives: No Advance Directives Information Provided: No Do you have a plan to hurt others: No Plan service: No Current occupational status: unemployed Cognitive needs: No Hearing needs: No Vision needs: Yes Physical Exam ED Vital Signs: Vital Signs - 24 hr 04/13/25 11:14 04/13/25 12:30 04/13/25 12:59 Temperature 98.3 F 97.3 F Pulse Rate 92 92 92 Respiratory Rate 16 16 16 Blood Pressure 150/91 H 129/83 120/70 Pulse Oximetry 100 99 100 Oxygen Delivery Method Room Air Room Air Room Air 04/13/25 14:00 Temperature 98.3 F Pulse Rate 88 Respiratory Rate 16 Blood Pressure 126/73 Pulse Oximetry 100 Oxygen Delivery Method Room Air BMI result Body Mass Index 31.2 Const General: cooperative, healthy appearing and no acute distress Orientation/consciousness: patient oriented x3 Limitations: no limitations HENMT Head: Yes normal to inspection and Yes atraumatic Ears: hearing grossly normal bilaterally General nose exam: Normal external nose present Face and sinus: Yes normal facial exam Eyes General: appearance normal, both eyes and all related structures EOM: EOMs intact bilaterally Neck Neck: Yes normal visual inspection and Yes no meningeal signs Resp Effort & Inspection: normal respiratory effort and no respiratory distress Cardio Rate: regular rate GI Inspection: Yes normal to inspection Palpation (GI): Soft to palpation, nontender, no guarding and not rigid Other: 2 sutures intact to scrotum with small area of wound dehiscence. Left testicle with appreciable swelling and indurated area with tenderness. No pointing. No drainage. No penile d/c General: Yes no CVA tenderness Back/Spine/Pelvis Back: no CVA tenderness Skin Rashes: no rashes Wounds: no wounds Neuro General: patient oriented x3, tone normal and no meningeal signs Cranial nerves: Yes CN's II-XII intact bilaterally Gait exam (Neuro): Normal gait present Extrem General: Yes normal to inspection Course Course Course Narrative: RME, this is a rapid medical exam performed by Alfredo Maharaj please refer to primary provider for complete H&P- 30 year old male presents for evaluation of left testicular pain and swelling. He reports a procedure in [place] on 03/18/25 for IVF purposes. He reports that 3 days ago he noticed a painful, hard mass on the left side of his scrotum. Plan for UA and ultrasound -4-- labs reassuring. UA not infected - gonorrhea/chlamydia testing pending US scrotum doppler IMPRESSION: 1. Several small right testicular cysts. 2. Somewhat hyperemic right testicle and epididymis. Cannot exclude epididymal orchitis. 3. Hyperemic and likely inflamed scrotum. 4. Area of concern likely just represents some inflammatory tissue. A discrete mass is not identified. >> Patient without pain or tenderness to the right testicle. Low suspicion for acute epididymal orchitis. > call placed to patients surgeon [14:15] -[phone]-- spoke with patient's surgeon Dr. Cha > recommended 10 day course Keflex. Results discussed with patient including worrisome signs and symptoms and strict return precautions, and when to return to the emergency department. They verbalized understanding and feel safe for discharge at this time. Medications Administered Discontinued Medications Generic Name Dose Route Start Last Admin Trade Name Freq PRN Reason Stop Dose Admin Ketorolac Tromethamine 15 mg 04/13/25 13:01 04/13/25 13:39 Ketorolac Tromethamine 15 Mg/Ml Vial IVPUSH 04/13/25 13:02 15 mg ONCE ONE Administration Medical Decision Making Medical Decision Making MDM Narrative: 30-year-old male with a past medical history of IBS, presenting to the ED complaining of left testicular pain, swelling, mild erythema x 3 days s/p testicular sperm extraction on 03/18/[address]25 in [place] by Dr. Abilio Cha. on exam vital signs stable, NAD, nontoxic appearing physical exam as noted above. Concern for postsurgical complication vs abscess vs cellulitis vs seroma. No evidence of Raymond's gangrene at this time. Rule out UTI. Low suspicion for intra-abdominal pathology or pyelo Plan: Labs, blood cultures, UA, scrotal ultrasound, consult urology/patient's surgeon Please refer to course for remaining clinical decision making, interpretation of labs/imaging results, and discussions with consultants and/or family members. Differential Diagnosis Differential Diagnoses: The differential diagnosis associated with the presentation includes As above Admission/Observation Consideration of admission/observation: Escalation of care including admission/observation considered Lab Data MDM Lab Attestation statement: I reviewed the patient's lab results. 04/13/25 12:57 04/13/25 12:57 Labs: Lab Results 04/13/25 Range/Units 12:57 WBC 10.0 (4.8-10.8) X10*3/uL RBC 5.08 (4.60-5.80) X10*6/uL Hgb 14.2 (14.0-18.0) g/dl Hct 43.3 (42.0-52.0) % MCV 85.2 (80.0-98.0) fL MCH 28.0 (27.0-33.0) pg MCHC 32.8 (31.0-36.0) g/dl RDW 13.2 (11.0-16.0) % Plt Count 313 (160-400) X10*3/uL MPV 9.2 L (9.4-12.4) fL Immature Gran % (Auto) 0.2 (0.0-0.4) % Neut % (Auto) 71.6 (45-73) % Lymph % (Auto) 21.2 (20-40) % [place] % (Auto) 6.4 (2-11) % Eos % (Auto) 0.4 (0-4) % Baso % (Auto) 0.2 (0-2) % Lymph # (Auto) 2.1 (1.2-4.9) X10*3/uL [place] # (Auto) 0.6 (0.1-1.2) X10*3/uL Eos # (Auto) 0.0 (0.0-0.4) X10*3/uL Baso # (Auto) 0.0 (0.0-0.2) X10*3/uL Abs Immat Gran (auto) 0.02 (0.00-0.03) X10*3/uL Absolute Neuts (auto) 7.2 (2.0-8.3) x10*3/uL Absolute Nucleated RBC 0.000 (0.0-0.012) X10*3/uL Nucleated RBC % (auto) 0.0 (0.0-0.2) /100WBC Sodium 142 (135-145) mmol/L Potassium 3.8 (3.3-5.1) mmol/L Chloride 106 (96-108) mmol/L Carbon Dioxide 26 (22-29) mmol/L Anion Gap 14 (12-20) BUN 8 L (9-16) mg/dL Creatinine 0.94 (0.5-1.4) mg/dL Estim Creat Clear Calc 150.4 Estimated GFR > 60 Random Glucose 89 (60-115) mg/dL Calcium 9.4 (8.4-10.2) mg/dL Magnesium 2.0 (1.6-2.6) mg/dL Total Bilirubin 0.9 (0.0-1.0) mg/dL Direct Bilirubin 0.3 (0.0-0.5) mg/dL AST 22 (5-37) U/L ALT 31 (0-40) U/L Alkaline Phosphatase 75 (39-117) U/L Total Protein 7.7 (6.5-8.0) g/dL Albumin 4.3 (3.5-5.0) g/dL Urine Color Yellow Urine Appearance Clear Urine pH 7.0 (5.0-9.0) Ur Specific [place] 1.015 (1.005-1.025) Urine Protein Negative (Neg-Trace) mg/dL Urine Glucose (UA) Negative (Negative) mg/dL Urine Ketones Negative (Negative) mg/dL Urine Blood Negative (Negative) Urine Nitrite Negative (Negative) Ur Leukocyte Esterase Negative (Negative) Urine RBC 0-2 (0-2) /HPF Urine WBC 0-5 (0-5) /HPF Ur Squamous Epith Cells 0-2 (0-2) /HPF Urine Bacteria None Seen (None Seen) Hyaline Casts 0-2 (0-2) /LPF Independent Interpretation I performed an independent interpretation of an: Ultrasound Radiology Impression Discussion of test interpretation with radiology: I have reviewed the radiologist's reading. External Record Review External record reviewed: Inpatient record, Office record, Outpatient record, Prior outpatient labs, Prior outpatient radiology, Primary care record and Outside ED record Tests considered The following testing was considered but not selected: As above Prescription Management I considered prescription management with: Pain Medication and Antibiotic Chronic Conditions Patient?s care impacted by: Other Social Determinants Patient?s care significantly limited by Social Determinants of Health including: Other Social Determinant of Health Discharge Plan Discharge Clinical Impression: Inflamed scrotum, Dehiscence of wound Prescriptions: No Action cholecalciferol (vitamin D3) 25 mcg (1,000 unit) tablet 25 mcg PO DAILY Qty: 90 0RF bromelain 80 mg PO DAILY vitamin E (dl, acetate) 450 mg (1,000 unit) capsule 450 mg PO DAILY 90 Days Qty: 90 1RF tadalafil 5 mg tablet 5 mg PO DAILY 90 Days Qty: 90 1RF Rx Instructions: BIN [id number] [facility] Group DR33 Print Language: Nepali
[2025-04-13 12:30] VITALS: BP 129/83; PULSE 92; RESP 16; TEMP 36.3; O2SAT 99
--- OUTSIDE RECORDS SUMMARY | 2025-04-13 12:51 | XMS_ITS | Clinical Summary ---
[facility] Organization [facility] Address [address] [place] [address] Care Team Providers Care Molding Utility Worker Name Role Phone Umu Toledo Primary Care Provider [phone] Allergies No known active allergies Medications No known medications Active Problems Problem Noted Date Diagnosed Date Male infertility 05/03/2024 Social History Tobacco Use Types Packs/Day Years Used Date Smoking Tobacco: Never Smokeless Tobacco: Never Tobacco Cessation:Counseling Given: Not Answered Alcohol Use Standard Drinks/Week Comments Never 0 (1 standard drink = 0.6 oz pur e alcohol) Sex and Gender Information Value Date Recorded Sex Assigned at Not on file Legal Sex Male 3:08 PM EDT Gender Identity Not on file Sexual Orientation Not on file Last Filed Vital Signs Vital Sign Reading Time Taken Comments Blood Pressure 130/78 05/31/2024 1:12 PM EDT Pulse 94 05/31/2024 1:12 PM EDT Temperature - - Respiratory Rate - - Oxygen Saturation - - Inhaled Oxygen Concentration - - Weight 106 kg (234 lb 11.2 oz) 05/03/2024 1:18 P M EDT Height 188 cm (6' 2 ) 05/31/2024 1:12 PM EDT Body Mass Index 30.13 05/03/2024 1:18 PM EDT Plan of Treatment Health Maintenance Due Date Last Done Comments HIV Screening 1994 DTaP,Tdap,and Td Vaccines (1 - Tdap) 2012 Hepatitis C Screening 2012 Hepatitis B Vaccines (1 of 3 - 19+ 3-dose series) 2013 COVID-19 Vaccine (2023-2 5 season) 2024 04/02/2021 Influenza Vaccine (Season Ended) 2025 Zoster Vaccines (1 of 2) 2044 HPV Vaccines Aged Out No longer eligi ble based on patient's age to complete this topic Hepatitis A Vaccines Aged Out No long er eligible based on patient's age to complete this topic MMR Vaccines Aged Out No longer eligi ble based on patient's age to complete this topic Meningococcal Vaccine Aged Out No alize jenise eligible based on patient's age to complete this topic Pneumococcal Vaccine: Pediat rics (0 to 5 Years) and At-Risk Patients (6 to 49 Years) Aged Out No longer eligi ble based on patient's age to complete this topic Insurance [employer] [id number] [facility] Care Teams Molding Utility Worker Relationship Specialty Start Date End Date Umu Toledo [address] [place] [address] [address] [place] [address] PCP - General Internal Medicine 03/27/24
[2025-04-13 12:59] VITALS: BP 120/70; PULSE 92; RESP 16; O2SAT 100
[2025-04-13 13:06] LABS: MANUAL DIFF FLAG NO
[2025-04-13 13:08] LABS: Basophils Percent Auto 0.2 % (0-2); Eosinophils Percent Auto 0.4 % (0-4); Hematocrit 43.3 % (42.0-52.0); Hemoglobin 14.2 g/dl (14.0-18.0); Imm Gran Abs Auto 0.02 X10*3/uL (0.00-0.03); Imm Gran Pct Auto 0.2 % (0.0-0.4); Lymphocytes Absolute Auto 2.1 X10*3/uL (1.2-4.9); Lymphocytes Percent Auto 21.2 % (20-40); Mean Corpuscular HGB Conc 32.8 g/dl (31.0-36.0); Mean Corpuscular Volume 85.2 fL (80.0-98.0); Mean Platelet Volume 9.2 fL (9.4-12.4); Monocytes Absolute Auto 0.6 X10*3/uL (0.1-1.2); Monocytes Percent Auto 6.4 % (2-11); Neutrophils Absolute Auto 7.2 x10*3/uL (2.0-8.3); Neutrophils Percent Auto 71.6 % (45-73); Platelet Count 313 X10*3/uL (160-400); Red Blood Count 5.08 X10*6/uL (4.60-5.80); Red Cell Distribution Width 13.2 % (11.0-16.0)
[2025-04-13 13:09] LABS: Appearance Urine Clear; Color Urine Yellow; Glucose Urine UA Negative (Negative); Leukocyte Esterase Urine Negative (Negative); Nitrite Urine Negative (Negative); Specific Gravity - Urine 1.015 (1.005-1.025); Urine Blood Negative (Negative); Urine Ketones Negative (Negative); Urine Protein Negative (Neg-Trace)
[2025-04-13 13:12] LABS: Bacteria Urine None Seen (None Seen); Hyaline Casts Urine 0-2 /LPF (0-2); RBC Urine 0-2 /HPF (0-2); Squamous Epithelial Cell Urine 0-2 /HPF (0-2); WBC Urine 0-5 /HPF (0-5)
[2025-04-13] MEDS: Ketorolac Tromethamine 15 MG/ML VIAL IVPUSH (13:39)
[2025-04-13 13:46] LABS: Alanine Aminotransferase 31 U/L (0-40); Albumin Level 4.3 g/dL (3.5-5.0); Alkaline Phosphatase 75 U/L (39-117); Anion Gap 14 (12-20); Aspartate Amino Transferase 22 U/L (5-37); Bilirubin Direct 0.3 mg/dL (0.0-0.5); Bilirubin Total 0.9 mg/dL (0.0-1.0); Blood Urea Nitrogen 8 mg/dL (9-16); Calcium 9.4 mg/dL (8.4-10.2); Carbon Dioxide 26 mmol/L (22-29); Chloride 106 mmol/L (96-108); Creatinine Clr Calc Pharmacy 150.4; Estimated Glomerular Filt Rate > 60; Glucose Random 89 mg/dL (60-115); Potassium 3.8 mmol/L (3.3-5.1); Sodium 142 mmol/L (135-145); Total Protein 7.7 g/dL (6.5-8.0)
[2025-04-13 14:00] VITALS: BP 126/73; PULSE 88; RESP 16; TEMP 36.8; O2SAT 100
[2025-04-13 14:53] LABS: CT PCR NOT DETECTED (Not Detect.); NG PCR NOT DETECTED (Not Detect.)
[2025-04-13 15:16] VITALS: BP 126/73; PULSE 88; RESP 16; TEMP 36.8; O2SAT 100
== END 2025-04-13 15:17 | disposition home or self-care (01) ==
PROVIDERS: Physician Assistant; Emergency Provider Emergency Medicine; PCP Internal Medicine
DX: N50.812 Left testicular pain (principal); R10.2 Pelvic and perineal pain; Z79.899 Other long term (current) drug therapy
CPT/HCPCS: 36415; 76870; 80048; 80076; 81001; 83735; 85025; 87040; 87491; 87591; 93975; 99284; J1885

== ENCOUNTER → 2025-04-13 11:15 | Outpatient (BNV) | payer OTHER, SELFPAY | PROVIDERS: Emergency Provider Emergency Medicine; PCP Internal Medicine; Visit Provider Radiology Diagnostic Radiology | DX: N50.812 Left testicular pain (principal) | CPT/HCPCS: 76870; 93975 ==

== ENCOUNTER 2025-07-02 | Outpatient (REF) | payer OTHER, SELFPAY ==
--- OUTSIDE RECORDS SUMMARY | 2025-06-25 16:40 | XMS_ITS | Encounter Summary ---
Author Organization [facility] Address [address] [place] [address] Phone Care Team Providers Care Catcher Helper Name Role Phone Pcp, Unknown Primary Care Provider Unavailabl e Encounter Details Date Type Department Care Team ([facility] st Contact Info) Description 06/25/2025 4:40 PM EDT Telemedicine [facility] [address] [facility] [address] [phone] Imelda Brock PA [address] [place] [address] [email or web address] Epididymitis (Primary Dx) Social History Tobacco Use Types Packs/Day Years Used Date Smoking Tobacco: Never Assessed Education Answer Date Recorded Are you interested in more education? Not on juan manuel e 12/14/2024 Are you concerned about learning? Not on file 12/14/2024 No 12/14/2024 No 12/14/2024 Digital Access Answer Date Recorded No 12/14/2024 No 12/14/2024 Reliable internet access at home? Not on file 12/14/2024 Device with a working camera? Not on file Sex and Gender Information Value Date Recorded Sex Assigned at Male 12/23/2024 8:15 PM EST Legal Sex Male 12:50 PM EST Gender Identity Male 12/23/2024 8:15 PM EST Sexual Orientation Straight 12/23/2024 8: 15 PM EST documented as of this encounter Progress Notes * Imelda Brock PA - 06/25/2025 4:40 PM EDT Urology Note Abilio Cha MD, FACS [address] [address], [place] [address] Office # [phone] [email or web address] Name: Ankit Freeman : 1995 Telemedicine virtual visit This real-time, interactive virtual clinical encounter was conducted using videoconferencing/phone technology from clinic or home office. At time of scheduling, the patient was informed that insurance will be billed, and that in- person care is available in case of emergencies or as needed otherwise. Virtual Post-operative Visit S/p GARRETT, Microscopic testicular sperm extraction (microTESE) on 03/18/25 Since post op appt he reports A slight opening of the incision Developed a firm mass on left side of the scrotum at that time Seen in ED Given Keflex QID x 10 days Completed antibiotics with resolution of mass and full healing of incision A few weeks later he started to notice a small, soft lump in the left scrotum, above the testicle, somewhat tender to touch Has slight discomfort with walking Denies fevers/chills/abdominal pain/LUTS Sits often for work 6 vials of sperm cryopreserved per lab results One vial of cryopreserved sperm thawed, but no viable eggs with IVF trial, so was unable to use Couple told there are 4 vials remaining Previous Successful sperm retrieval Doing well since surgery No complaints Discomfort resolved No fever, chills, emesis, bleeding, discharge, swelling PE: Appears well, comfortable, NAD Remainder deferred FINAL PATHOLOGIC DIAGNOSIS: A. TESTIS BIOPSY, LEFT: Mature spermatogenesis present. NOTE: The biopsy shows a mixture of tubules with mature spermatogenesis as well as others with Sertoli cells only. B. TESTIS BIOPSY, RIGHT: Mature spermatogenesis present. NOTE: The biopsy shows a mixture of tubules with mature spermatogenesis as well as others with Sertoli cells only. Assessment/Plan: S/p MicroTESE in 02/2025 6 vials cryopreserved at [facility] (total)- now with 5 ([facility] says 4 are left, they will callto confirm) Left epididymitis likely -Instructed to avoid prolonged sitting, to wear supportive brief underwear and avoid tight fitting pants; he can use Advil, ice, and scrotal elevation as needed -Notify office AND seek urgent care for worsening pain, swelling, fevers, chills, nausea, vomiting or any concerns -Check Urinalysis, Urine Culture- ordered at [facility] -Once urine sample completed at [facility], start Vantin 200 mg PO BID x 10 days, cautioned to SEs, Rx sent to his pharmacy today -Notify office if symptoms have not improved in 2 weeks Follow up as needed Imelda Brock PA-C and Abilio Cruz [facility] Pcp, Unknown documented in this encounter Plan of Treatment Not on file documented as of this encounter Visit Diagnoses Diagnosis Epididymitis- Primary Unspecified orchitis and epididymitis documented in this encounter Care Teams Catcher Helper Relationship Specialty Start Date End Date Pcp, Unknown PCP - General 12/14/24 documented as of this encounter Additional Source Comments The information contained in this document represents components of the legal health record. It is not the complete legal health record.[facility]
--- OUTSIDE RECORDS SUMMARY | 2025-07-01 15:32 | XMS_ITS | Clinical Summary ---
Author Organization [facility] Address [address] [place] [address] Care Team Providers Care Stapling Machine Operator Name Role Phone Umu Toledo Primary Care Provider [phone] Allergies No known active allergies Medications No [...] (2023-2 5 season) 2024 04/02/2021 Influenza Vaccine (#1) 2025 Zoster Vaccines (1 of 2) 2044 [...] to complete this topic Insurance [employer] [id number] [facility] OPEN ACCESS Care Teams Stapling Machine Operator Relationship Specialty Start Date End Date Umu Toledo [address] [place] [address] [address] [place] [address] PCP - General Internal Medicine 03/27/24
--- OUTSIDE RECORDS SUMMARY | 2025-07-01 15:32 | XMS_ITS ---
Author Name [facility] Organization Unknown Results Test Name/Text Value Interpretation Date Range Source TESTOSTERONE 617.0 ng/dL Normal 05/12/2024 175 - 800 [facility] LUTEINIZING HORMONE 2.5 mIU/mL Normal 05/12/2024 [facility] PROLACTIN 7.71 ng/mL Normal 05/12/2024 [facility] ESTRADIOL 41.0 pg/mL Normal 05/12/2024 [facility] FOLLICLE STIM HORMONE 5.84 mIU/mL Normal 05/12/2024 [facility] Problems Problem Status Onset Date Problem Type Date of Resoluti on Source Male infertility active EncounterDiagnosisAct [facility] Encounters Encounter Type Encounter Reason Primary Diagnosis Location Date Ambulatory Male infertility, unspecified Male infertility, unspecified [facility] 05/31/2024 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
[2025-07-02 11:39] LABS: MANUAL DIFF FLAG NO
[2025-07-02 12:07] LABS: Hematocrit 44.7 % (42.0-52.0); Hemoglobin 14.5 g/dl (14.0-18.0); Imm Gran Abs Auto 0.02 X10*3/uL (0.00-0.03); Imm Gran Pct Auto 0.2 % (0.0-0.4); Lymphocytes Absolute Auto 2.7 X10*3/uL (1.2-4.9); Mean Corpuscular HGB Conc 32.4 g/dl (31.0-36.0); Mean Corpuscular Hemoglobin 28.0 pg (27.0-33.0); Mean Corpuscular Volume 86.3 fL (80.0-98.0); NRBC Abs Auto 0.000 X10*3/uL (0.0-0.012); NRBC Pct Auto 0.0 /100WBC (0.0-0.2); Platelet Count 341 X10*3/uL (160-400); Red Blood Count 5.18 X10*6/uL (4.60-5.80); White Blood Count 8.4 X10*3/uL (4.8-10.8)
[2025-07-02 12:56] LABS: Alanine Aminotransferase 49 U/L (0-40); Albumin Level 4.5 g/dL (3.5-5.0); Alkaline Phosphatase 73 U/L (39-117); Anion Gap 12 (12-20); Aspartate Amino Transferase 33 U/L (5-37); Blood Urea Nitrogen 8 mg/dL (9-16); Calcium 9.2 mg/dL (8.4-10.2); Carbon Dioxide 26 mmol/L (22-29); Chloride 109 mmol/L (96-108); Cholesterol 168 mg/dL (<200); Estimated Glomerular Filt Rate > 60; HDL Cholesterol 54 mg/dL (>40); Potassium 4.2 mmol/L (3.3-5.1); Sodium 143 mmol/L (135-145); Thyroid Stimulating Hormone 1.99 uIU/mL (0.32-4.0); Total Protein 7.8 g/dL (6.5-8.0); Triglycerides 61 mg/dL (<150)
--- OUTSIDE RECORDS SUMMARY | 2025-07-29 11:18 | XMS_ITS | Clinical Summary ---
Author Organization [facility] Address [address] [place] [address] Care Team Providers Care Sheet Metal Duct Worker Supervisor Name Role Phone [facility] Primary Care Provider [phone] Allergies No known active allergies Medications No [...] - 19+ 3-dose series) 2013 COVID-19 Vaccine (2 - 2024-2 6 season) 2025 04/02/2021 Influenza Vaccine (#1) 2025 Zoster Vaccines [...] to complete this topic Insurance [place] [id number] [facility] OPEN ACCESS Care Teams Sheet Metal Duct Worker Supervisor Relationship Specialty Start Date End Date [facility] [address] [place] [address] [address] [place] [address] PCP - General Internal Medicine 03/27/24
--- OUTSIDE RECORDS SUMMARY | 2025-07-29 11:18 | XMS_ITS | Encounter Summary ---
Author Organization [facility] Address [address] [place] [id number] Phone Care Team Providers Care Ceramic Research Engineer Name Role Phone Pcp, Unknown Primary Care Provider Unavailabl e Reason for Visit * Reason Comments Medication Refill Encounter Details Date Type Department Care Team ([facility] Contact Info) Description 06/18/2025 Refill [facility] [address] [phone] Abilio Cha MD [address] [phone] [email or web address] Medication Refill Social History Tobacco Use Types [...] on filedocumented in this encounter Care Teams Ceramic Research Engineer Relationship Specialty Start Date End Date Pcp, Unknown PCP - General 12/14/24 documented as of this encounter Additional Source Comments The information contained in this document represents components of the legal health record. It is not the complete legal health record.[facility]
--- OUTSIDE RECORDS SUMMARY | 2025-07-29 11:18 | XMS_ITS | Clinical Summary ---
Author Organization [facility] Address [email or web address] [facility] [address] [place] [address] Phone Care Team Providers Care Bridge Game Director Name Role Phone Pcp, Unknown Primary Care [...] Team Description 06/25/2025 4:40 PM EDT [facility] [address] [address] Imelda Brock PA Epididymitis (Primary Dx) 06/21/2025 Telephone [facility] PM[facility]ha[facility] [address] [address] Imelda Brock PA 06/18/2025 Refill [facility] [address] [phone] Abilio Cha MD Medication Refill from Last 3 Months Social History Tobacco [...] HIV ONE-TIME SCREENING (18-6 5 YEARS) 2012 INFLUENZA VACCINE (#1) 2025 COVID-19 VACCINE ( - 2023-2 5 season) 2025 HEPATITIS A VACCINES Aged Out No long [...] topic Medical Devices Not on file Insurance [facility] [address] [address] [place] [address] PL[place] [facility] [place] [address] [place] [address] PLUS [employer] LOCAL PLUS [employer] LOCAL PLUS CIG LOCAL PLUS Care Teams Bridge Game Director Relationship Specialty Start Date End Date Pcp, Unknown PCP - General 12/14/24 Additional Source Comments The information contained in this document represents components of the legal health record. It is not the complete legal health record.[facility]
== END 2025-07-02 00:01 | disposition home or self-care (01) ==
LOC: HO.LAB
PROVIDERS: PCP Internal Medicine; Visit Provider Internal Medicine
DX: K58.0 Irritable bowel syndrome with diarrhea (principal); E66.01 Morbid (severe) obesity due to excess calories; E78.5 Hyperlipidemia, unspecified; E55.9 Vitamin D deficiency, unspecified
CPT/HCPCS: 36415; 80053; 80061; 82306; 84443; 85025

== ENCOUNTER 2025-07-04 12:17 | Outpatient (AMB) | payer OTHER, SELFPAY ==
[2025-07-04 12:39] VITALS: BP 120/80; PULSE 68; RESP 18; TEMP 36.1; O2SAT 97; BMI 32.1
--- NOTE | 2025-07-04 12:39 | A.OFFPC_ITS ---
Vital Signs 07/04/25 12:39 Height 6 ft 2 in Weight 250 lb 4 oz BMI 32.1 BP 120/80 Blood Pressure Location Lt brachial Position Sitting Respiration 18 Pulse 68 Pulse Source Pulse Oximeter Temp 97 F Temp Source Temporal Artery Scan Pulse Oximetry (%) 97 Oxygen Delivery Method Room Air Intake Visit Reasons: annual exam Hairpiece Stylist Required: No Accompanied by: Self / Same As Patient Allergies No Known Allergies Allergy (Verified 07/04/25 12:49) Medication List - Last Reconciled 07/04/25 by Umu Garza MD acetaminophen (Tylenol Extra Strength) 500 mg PO Q6H PRN [bromelain 80 mg PO DAILY] cephalexin 500 mg PO QID 10 days cholecalciferol (vitamin D3) 25 mcg PO DAILY ibuprofen 800 mg PO Q8H PRN tadalafil 5 mg PO DAILY 90 days vitamin E (dl, acetate) 450 mg PO DAILY 90 days Tobacco use date assessed: 07/04/25 Dental Screening Dental Screen Date: 07/04/25 Did you have a dental visit in the last 12 months?: Yes Did you have a dental problem in the last 6 months where you did not have access to dental care?: No Was dental information given to patient?: Patient has dentist HPI HPI Comments History of Present Illness Details The patient is a 30-year-old male presenting for a physical exam and preventative care. The patient has a history of vitamin D deficiency, with recent lab results indicating a level of 23.8 ng/mL, which is below the normal range. He has not been consistently taking vitamin D supplements and plans to resume them as per the current visit's recommendations. The patient has elevated liver enzymes, with one enzyme in the 40s, slightly above the normal range, which typically goes up to the 30s. A repeat liver panel is planned in two weeks to monitor these levels. The patient reports a history of anxiety, particularly in social situations and new environments, which he has experienced throughout his life. He manages this anxiety without medication but is open to discussing treatment options. The patient has a history of prostatitis, which has affected his sperm count, leading to a testicular sperm extraction procedure for in vitro fertilization (IVF). The procedure was successful in retrieving viable sperm, and the patient is currently involved in the IVF process with his partner. [facility] Medical History Screening for hypothyroidism Screening for diabetes mellitus Screening for hyperlipidemia Adult general medical exam Male infertility IBS (irritable bowel syndrome) Morbid obesity Chronic diarrhea Acute diarrhea Abdominal gas pain Surgical History History of laparoscopic cholecystectomy (~02/14/24) Hx of cystoscopy Family History Mother No problems noted. Father No problems noted. Social History Housing: Apartment Alcohol intake: never Patient Tobacco Use Status: Never used Tobacco e-Cigarette/Vaping Use: Never Used Second Hand Smoke Exposure: No service: No Current occupational status: unemployed Cognitive needs: No Hearing needs: No Vision needs: Yes Questionnaire PHQ-9 Over the last 2 weeks, how often have you been bothered by any of the following problems? 1. Little interest or pleasure in doing things: not at all 2. Feeling down, depressed, or hopeless: not at all 3. Trouble falling or staying asleep, or sleeping too much: not at all 4. Feeling tired or having little energy: several days 5. Poor appetite or overeating: not at all 6. Feeling bad about yourself - or that you are a failure or have let yourself or your family down: not at all 7. Trouble concentrating on things, such as reading the newspaper or watching television: not at all 8. Moving or speaking so slowly that other people could have noticed. Or the opposite - being so fidgety or restless that you have been moving around a lot more than usual: not at all 9. Thoughts that you would be better off or of hurting yourself in some way: not at all Total score: 1 Depression Screening Interpretation: Negative Depression Screening Done: Yes 64722 - PHQ-9 Billing: Yes Source: Developed by Drs. Taj Lima, Kena Bradley, Jesus Alberto Gonzalez and colleagues, with an educational george from [employer]. Thrive Questionnaire Date Thrive assessed: 07/04/25 I am a: Patient What is your living situation today?: I choose not to answer this question Within the past 12 months, did the food you bought not last and you didn't have the money to get more?: I choose not to answer this question Within the past 12 months, did you worry whether your food would run out before you got money to buy more?: I choose not to answer this question Do you have trouble paying for medicines?: I choose not to answer this question Do you have trouble getting transportation to medical appointments?: I choose not to answer this question Do you have trouble paying your heating and electricity bill?: I choose not to answer this question Do you have trouble taking care of your child, family member or friend?: I choose not to answer this question Do you have trouble with day-to-day activities such as bathing, preparing meals, shopping, managing finances, etc.?: I choose not to answer this question Are you currently unemployed and looking for a job?: I choose not to answer this question Are you interested in more education?: I choose not to answer this question Please select the resources that you would like help with: Paying for medicine Currently or been in a relationship where the following occur: No concerns reported THRIVE Score: 0 AUDIT C Alcohol Use Questionnaire (AUDIT-C) 1. How often do you have a drink containing alcohol?: Never Total Score: 0 Score Reviewed/Action Taken: No FRANK-7 AMB Questionnaire FRANK-7 Date FRANK - 7 assessed: 07/04/25 Feeling nervous, anxious, or on edge: 3 = Nearly every day Not being able to stop or control worryin = Nearly every day Worrying too much about different things: 1 = Several days Trouble relaxin = Several days Being so restless that it is hard to sit still: 0 = Not at all Becoming easily annoyed or irritable: 1 = Several days Feeling afraid as if something awful might happen: 0 = Not at all Total FRANK-7 score (0-4 normal; 5-9 mild; 10-14 moderate; 15-21 severe): 9 Source: Developed by Drs. Taj Lima, Kena Bradley, Jesus Alberto Gonzalez and colleagues, with an educational george from [employer]. FRANK-7 Assessment Billing FRANK-7 Assessment Tool: FRANK-7 Assessment 97452 Review of Systems Const All systems reviewed & are unremarkable except as noted in HPI and below Card Denies chest pain at rest, Denies chest pain with activity, Denies edema, Denies irregular heart rhythm, Denies claudication, Denies dyspnea, Denies dyspnea on exertion, Denies orthopnea, Denies paroxysmal nocturnal dyspnea and Denies slow heart rate Resp Denies cough, Denies dyspnea and Denies dyspnea on exertion GI Denies abdominal pain, Denies change in bowel habits, Denies excessive flatus, Denies nausea and Denies vomiting Physical exam (Primary Care) Vital Signs: Last Vital Signs Resp 18 07/04/25 12:39 Oxygen Delivery Method Room Air 07/04/25 12:39 BMI result Body Mass Index 32.1 BMI Assessment/Plan discussion: High BMI High, discussed plan: lifestyle, weight reduction, dietary and physical activity Tobacco/Smoking Status: Tobacco use Status Tobacco use date assessed 03/12/24 03/12/24 15:18 Patient Tobacco Use Status Never used Tobacco 04/13/25 13:00 e-Cigarette/Vaping Use Never Used 03/12/24 15:18 Depression Screening Interpretation: Negative Thrive Assessment: Date of Thrive Assessment Date Thrive assessed 07/03/25 07/02/25 21:10 Currently or been in a relationship where the following occur: No concerns reported HENMT Head: Yes normal to inspection, Yes normocephalic and Yes atraumatic Ears: external ears normal Eyes General: appearance normal, both eyes and all related structures Eyelids: Yes eyelids normal Conjunctivae: conjunctivae normal Neck Neck: Yes normal visual inspection and Yes supple Resp Effort & Inspection: normal respiratory effort Auscultation: clear to auscultation bilaterally Cardio Jugular venous distension: no JVD Rate: regular rate Rhythm: regular rhythm Heart sounds: S1 normal heart sound present and S2 normal heart sound present GI Inspection: Yes normal to inspection Palpation (GI): Soft to palpation and nontender Auscultation: normal bowel sounds Skin General skin exam: no rashes or lesions noted Neuro General: no focal motor deficits Extrem General: Yes full ROM Psych Appearance: grossly normal Coding Level of Care Code Est Pt Level 3 (83280) Est Pt Prev Care 18-39y(65556) Diagnoses Physical exam Z00.00 FRANK (generalized anxiety disorder) F41.1 Additional Codes PHQ-9 - 06341 - PHQ-9 Billing: Yes ([id number]) FRANK-7 Assessment Billing - FRANK-7 Assessment Tool: FRANK-7 Assessment 64466 ([id number]) Time Spent (min) 32 Assessment & Plan Assessment & Plan (1) Physical exam: Code(s): Z00.00 - Encounter for general adult medical examination without abnormal findings Category: Medical (2) FRANK (generalized anxiety disorder): Code(s): F41.1 - Generalized anxiety disorder Category: Medical Plan The patient will continue with vitamin D supplementation to address the deficiency noted in recent lab results. A repeat liver panel is scheduled in two weeks to monitor the mildly elevated liver enzyme levels. For anxiety, the patient is open to discussing treatment options, and a medication that may cause drowsiness was suggested, with caution advised regarding activities such as driving. The patient is advised to avoid Tylenol and alcohol to prevent further liver enzyme elevation. Patient was informed and verbally consented to the use of an ambient scribe for clinic note documentation during this visit. Orders: Orders Liver Panel Today R74.01 - Elevation of levels of liver transaminase levels Medications: New hydroxyzine HCl 25 mg PO BID PRN 60 tabs 0RF itching 30 days F41.1 - Generalized anxiety disorder Refilled cholecalciferol (vitamin D3) 25 mcg PO DAILY 90 tabs 0RF R79.89 - Other specified abnormal findings of blood chemistry
--- OUTSIDE RECORDS SUMMARY | 2025-07-04 13:10 | XMS_ITS | Encounter Summary ---
Author Organization [facility] Address [address] [place] [address] Phone Care Team Providers Care Cattle Sorter Name Role Phone Pcp, Unknown Primary Care Provider Unavailabl e Reason for Visit * Reason Comments Medication Refill Encounter Details Date Type Department Care Team ([facility] Contact Info) Description 06/18/2025 Refill [facility] [address] [address] Abilio Cha MD [address] [phone] [email or web address] Medication Refill Social History Tobacco Use Types Packs/Day Years [...] PM EST documented as of this encounter Plan of Treatment Not on file documented as of this encounter Visit Diagnoses Not on filedocumented in this encounter Care Teams Cattle Sorter Relationship Specialty Start Date End Date Pcp, Unknown PCP - General 12/14/24 documented as of this encounter Additional Source Comments The information contained in this document represents components of the legal health record. It is not the complete legal health record.[facility]
--- OUTSIDE RECORDS SUMMARY | 2025-07-04 13:10 | XMS_ITS | Clinical Summary ---
Author Organization [facility] Address [address] [place] [address] Care Team Providers Care Automatic Shirring Machine Operator Name Role Phone Umu Toledo Primary Care Provider [phone] Allergies No known active allergies Medications No [...] to complete this topic Insurance [employer] [id number] [facility] ACCESS [facility] Address: [facility] [address] [place] [address] Care Teams Automatic Shirring Machine Operator Relationship Specialty Start Date End Date Umu Toledo [address] [place] [address] [address] [facility] [place] [address] PCP - General Internal Medicine 03/27/24
== END 2025-07-04 13:02 | disposition home or self-care (01) ==
LOC: HO.HMCH 12:18
PROVIDERS: PCP Internal Medicine; Visit Provider Internal Medicine
DX: Z00.00 Encounter for general adult medical examination without abnormal findings (principal); F41.1 Generalized anxiety disorder

== ENCOUNTER → 2025-07-04 12:17 | Outpatient (BNVA) | payer OTHER, SELFPAY | PROVIDERS: PCP Internal Medicine; Visit Provider Internal Medicine | DX: Z00.00 Encounter for general adult medical examination without abnormal findings (principal); E55.9 Vitamin D deficiency, unspecified; F41.1 Generalized anxiety disorder; R79.89 Other specified abnormal findings of blood chemistry | CPT/HCPCS: 96127 ==

== ENCOUNTER 2025-07-19 15:17 | Outpatient (REF) | payer OTHER, SELFPAY ==
--- OUTSIDE RECORDS SUMMARY | 2025-07-19 15:18 | XMS_ITS | Clinical Summary ---
Author Organization [facility] Address [address] [place] [address] Care Team Providers Care Employee Communications Coordinator Name Role Phone Umu Toledo Primary Care Provider [phone] Allergies No known active allergies Medications No [...] to complete this topic Insurance [employer] [id number] [facility] OPEN ACCESS Care Teams Employee Communications Coordinator Relationship Specialty Start Date End Date Umu Toledo [address] [place] [address] [address] [place] [address] PCP - General Internal Medicine 03/27/24
--- OUTSIDE RECORDS SUMMARY | 2025-07-19 15:18 | XMS_ITS | Encounter Summary ---
Author Organization [facility] Address [address] [place] [address] Phone Care Team Providers Care Set Making Machine Operator Name Role Phone Pcp, Unknown Primary Care Provider Unavailabl e Reason for Visit * Reason Comments Medication Refill Encounter Details Date Type Department Care Team ([facility] Contact Info) Description 06/18/2025 Refill [facility] [address] [address] Abilio Cha MD [address] [phone] [email or web address] Medication Refill Social History Tobacco Use Types [...] on filedocumented in this encounter Care Teams Set Making Machine Operator Relationship Specialty Start Date End Date Pcp, Unknown PCP - General 12/14/24 documented as of this encounter Additional Source Comments The information contained in this document represents components of the legal health record. It is not the complete legal health record.[facility]
--- OUTSIDE RECORDS SUMMARY | 2025-07-19 15:18 | XMS_ITS | Clinical Summary ---
Author Organization [facility] Address [address] [facility] [address] [place] [address] Phone Care Team Providers Care Fermenting Cellar Dropper Name Role Phone Pcp, Unknown Primary Care Provider Unavailabl e Allergies No known active allergies Medications oxyCODONE-aceta minophen (PERCOCET) 5-325 mg per tablet SELF PAY DO NOT SUBMIT TO INSURANCE. Take 1-2 tablets by mouth every 8 (eight) hours as needed for pain (specific location in comments). 24 tablet 03/18/2025 Active cefpodoxime (VANTIN) 200 MG tablet Take 1 tablet (200 mg total) by mouth 2 (two) times a day. 20 tablet 06/25/2025 Active Encounters Date Type Department Care Team Description 06/25/2025 4:40 PM EDT Telemedicine [facility] [address] [address] Imelda Brock PA Epididymitis (Primary Dx) 06/21/2025 Telephone [facility] PM[facility] [address] [address] Imelda Brock PA 06/18/2025 Refill [facility] PM[facility] [address] [address] Abilio Cha MD Medication Refill 04/24/2025 Telephone [facility] [address] [address] Carmen Gallardo NP 04/18/2025 Telephone [facility] [address] [place] [address] Carmen Gallardo NP from Last 3 Months Social History Tobacco Use Types Packs/Day Years [...] Orientation Straight 12/23/2024 8: 15 PM EST Plan of Treatment Health Maintenance Due Date Last Done Comments Adult Td,Tdap Booster 1994 DEPRESSION SCREENING 2006 SMOKING Hx and SMOKELESS TOB ACCO SCREENING 2007 HEPATITIS C SCREENING 2012 HIV ONE-TIME SCREENING (18-6 5 YEARS) 2012 COVID-19 VACCINE ( - 2023-2 5 season) 2024 HEPATITIS A VACCINES Aged Out No long er eligible based on patient's age to complete this topic HIB VACCINES Aged Out No longer eligi ble based on patient's age to complete this topic MENINGOCOCCAL VACCINES (ACWY) Aged Out No longer eligible based on patient's age to complete this topic MENINGOCOCCAL VACCINES (B) Aged Out N o longer eligible based on patient's age to complete this topic PNEUMOCOCCAL VACCINES (0-49 years) Aged Out No longer eligible based on patient's age to complete this topic Medical Devices Not on file Insurance [facility] PLUS [facility] PLUS [facility] PLUS [facility] LOC[facility] PLUS CIG LOCAL PLUS CIG LOCAL PLUS Care Teams Fermenting Cellar Dropper Relationship Specialty Start Date End Date Pcp, Unknown PCP - General 12/14/24 Additional Source Comments The information contained in this document represents components of the legal health record. It is not the complete legal health record.[facility]
[2025-07-19 18:26] LABS: Albumin Level 4.6 g/dL (3.5-5.0); Alkaline Phosphatase 72 U/L (39-117); Aspartate Amino Transferase 33 U/L (5-37); Total Protein 8.0 g/dL (6.5-8.0)
[2025-07-19 18:42] LABS: Alanine Aminotransferase 53 U/L (0-40)
== END 2025-07-19 15:18 | disposition home or self-care (01) ==
LOC: HO.LAB 15:17
PROVIDERS: PCP Internal Medicine; Visit Provider Internal Medicine
DX: R74.01 Elevation of levels of liver transaminase levels (principal)
CPT/HCPCS: 36415; 80076